=== PATIENT | male | born 1955 | race Caucasian/White ===

== ENCOUNTER 2017-03-24 06:19 | Day surgery (SDC) | payer OTHER ==
[~2017-03-24] VITALS: Ht 167.6 cm; Wt 69.6 kg
[2017-03-24] MEDS ORDERED: IOHEXOL 350 MG/ML 50 ML BTL (for Cath Lab) OTHER ONE (06:20)
[2017-03-24] MEDS ORDERED: NS 1000P @30 MLS/HR (KVO) IV SCH (07:00)
[2017-03-24 07:08] VITALS: BP 164/98; PULSE 79; RESP 17; TEMP 98.1; O2SAT 100
[2017-03-24] MEDS ORDERED: CLAR10CA3 PO (07:36)
[2017-03-24] MEDS ORDERED: ASPI325T PO (07:36)
[2017-03-24] MEDS ORDERED: ERGO1CAP30 PO (07:36)
[2017-03-24] MEDS ORDERED: POTA595T PO (07:36)
[2017-03-24] MEDS ORDERED: ISOS30TA3 PO (07:36)
[2017-03-24] MEDS ORDERED: LISI10TA3 PO (07:36)
[2017-03-24] MEDS ORDERED: NITR0.4S SL (07:36)
[2017-03-24] MEDS ORDERED: MEDI220T PO (07:36)
[2017-03-24] MEDS ORDERED: MAGN400T2 PO (07:36)
[2017-03-24] MEDS ORDERED: ATOR40TA16 PO (07:36)
[2017-03-24] MEDS ORDERED: FLUT50SP EACH NARE (07:36)
[2017-03-24] MEDS ORDERED: CARV6.252 PO (07:36)
[2017-03-24] MEDS ORDERED: KETO2CRE TOPICAL (07:36)
[2017-03-24] MEDS ORDERED: CLOP75TA PO (07:36)
[2017-03-24] MEDS ORDERED: HEPARIN-NS/PF INJ 1,000 ML ONE (08:36)
[2017-03-24] MEDS ORDERED: SODIUM CHLORID 0.9% 500 ML INJ 500 ML ONE (08:37)
[2017-03-24] MEDS ORDERED: NITROGLYCERIN INJ 5 ML ONE (09:01)
[2017-03-24] MEDS ORDERED: HEPARIN SODIUM - IV 10,000 UNITS/10 ML VIAL ONE (09:01)
[2017-03-24] MEDS ORDERED: MIDAZOLAM HCL 2 MG/2 ML VIAL ONE ×2 (09:01→09:29)
--- NOTE | 2017-03-24 09:59 | CATHPROC ---
[employer] HIS Report Study Information Study Number Admission Scheduled Start Study Start [id number] Mar 24 2017 6:19AM 03/24/2017 Mar 24 2017 8:44AM [facility] Cardiac Catheterization Admit Source Facility Department Other [facility] Physician and Clinical Staff Initial Lee Vargas Coagulating Drying Supervisor Merlyn Hardin,CJ Other cathlab, cathlab Recorder Analy Guerrero,SHARE DAIRY FARMER TECH2 Scrub Fran Jasso,packaging operator Performed Procedure Location (Site) Vessel Name Coronary Angiograms LCA Left Coronary Coronary Angiograms RCA Right Coronary L Heart Cath Wire insertion Radial (right) Radial Art. Equipment Time Corporate Learning Consultant Description Size Mfg Part Number Used/Scraped TRANSDUCER, TRUWAVE [id number] 09:01 ARIZA YEE * Used W/STOCKCOCK *[id number] *[id number] *[id number] 09:01 [employer] PACK, CCL CUSTOM * Used *[id number] 09:01 [employer] SUPPORT, ARTERIAL ADULT [id number] *[id number] Used [id number] 09:01 [employer] PACER PEN, SKIN DUAL W/ RULER * Used *[id number] BAND, RADIAL COMPRESSION TR [id number] 09:45 [employer] MEDICAL 24CM Used SHORT 24 *[id number] SHEATH, FR6 RADIAL PRELUDE 09:01 [employer] FR 6 [id number] Used EASE 11CM [id number] 09:01 [employer] WIRE, EXCHANGE 260CM 3MMJ 260CM Used *[id number] 09:01 [employer] OMNIPAQUE, 350 MG, 150ML 150ML [id number] Used [id number] 09:01 [facility] BLANKET,WARM AIR CCL * Used *[id number] History: Current Medications Medication Dosage/Unit Route Frequency Last Date/Time Taken ASA CARVEDILOL LISINOPRIL History: Allergies Allergy Reaction No Known Allergies History: Risk Factors Family History of Hypertension Dyslipidemia Previous NE Previous Heart Failure Premature CAD Yes Yes Yes No No Prior Valve Prior PCI Prior CABG Surgery No No No Cerebrovascular Peripheral Artery Chronic Lung On Dialysis Diabetes Disease Disease Disease No Yes No No No History: Stress Tests Stress or Imaging Studies Performed Yes Standard Exercise Stress Test No Stress Echo No Stress Test SPECT No Stress Test CMR Stress Test CMR Result Stress Test CMR Ischemia Risk/Extent Yes Positive High Cardiac CTA Coronary Calcium Score No No History: Other Current Smoker Method Quit Packs a Day Years Used Pack Years No Cigarettes 20 Years Ago 1 30 30 Labs Hgb (g/dl) Hct (%) RBC (MIL/MM3) WBC (l/cumm) Platelets (thousands) 11.60-17.00 35.00-51.00 4.00-5.90 4.00-11.00 150.00-450.00 14.2 42.3 4.7 6.9 284 Glucose (mg/dl) BUN (mg/dl) Creatinine (mg/dl) BUN:Creatinine (1:x) 74.00-106.00 7.00-18.00 0.50-1.30 10.00-20.00 84 13 0.8 16.3 Na (meq/l) K (meq/l) Cl (meq/l) CO2 (mmol/L) Ca (mg/dl) 136.00-145.00 3.50-5.10 98.00-107.00 21.00-32.00 8.50-10.10 140 4.7 101 28 9.8 PT (sec) INR (PTT:PT) 9.80-11.60 0.90-1.10 10.4 1 Medication Medication Total Dose (Bolus/Oral) Medication Total Dosage/Unit 1% XYLOCAINE 10 mL FENTANYL 100 mcg HEPARIN 5000 units NITROGLYCERIN S/L 0.4 mg NTG (IC) 300 mcg VERSED 4 mg Medications (Bolus/Oral) Medication Time Given Dosage/Unit Administered By Reason NITROGLYCERIN S/L 03/24/2017 9:05:18 AM 0.4 mg Merlyn Hardin 0.4 mg NITROGLYCERIN S/L given in lab by Merlyn Hardin, CJ via Sublingual. Ordered by Carlito Cadena VERSED 03/24/2017 9:25:43 AM 2 mg Merlyn Hardin 2 mg VERSED given in lab by Merlyn Hardin, RN in Left Antecubital via Peripheral IV. Ordered by Lee Mcnamara. FENTANYL 03/24/2017 9:26:11 AM 50 mcg Lashawn, Merlyn 50 mcg FENTANYL given in lab by Merlyn Hardin, RN in Right Antecubital via Peripheral IV. Ordered b Lee Mcnair. VERSED 03/24/2017 9:32:13 AM 2 mg Eneida Hardinara 2 mg VERSED given in lab by Merlyn Hardin, CJ in Left Antecubital via Peripheral IV. Ordered by Lee Mcnamara. 1% XYLOCAINE 03/24/2017 9:32:15 AM 10 mL Lee Cadena 10 mL 1% XYLOCAINE given in lab by Lee Cadena in Right Radial via Subcutaneous. Ordered by Lee Cadena. FENTANYL 03/24/2017 9:33:24 AM 50 mcg Merlyn Hardin 50 mcg FENTANYL given in lab by Merlyn Hardin, CJ in Right Antecubital via Peripheral IV. Ordered b Lee Mcnair. NTG (IC) 03/24/2017 9:33:32 AM 300 mcg Lee Cadena 300 mcg NTG (IC) given in lab by Lee Cadena in Right Radial via Intra-arterial. Ordered by Lee Cadena. HEPARIN 03/24/2017 9:33:42 AM 5000 units Merlyn Hardin 5000 units HEPARIN given in lab by Merlyn Hardin, CJ in Left Antecubital via Peripheral IV. Ordered by Lee Cadena. Medication (Drip) Medication Time Given Dosage/Unit Concentration/Unit Diluent (ml) Solution IV Solutions 03/24/2017 8:53:04 AM 0 mL (IV) 500 NaCl .9 IV Solutions given in lab by Merlyn Hardin RN in Left Antecubital via Peripheral IV. Pump/Drip Denny w = 20 ml/hr using NaCl .9. Ordered by Lee Cadena. Initial Case Assessment Cardiovascular HR NIBP Chest Pain 93 172/121 6 Edema Present Skin color Skin None Normal Warm Dry Circulatory - Right Pulses Dorsalis Pedis Femoral Radial 2 3 3 Scale (0,1,2,3,4,d) Scale (0,1,2,3,4,d) Neurological State Oriented to time-place- Alert Moves all extremities person Respiration - General Respiration Rate SpO2 (%) (B/min) 15 100 Final Case Assessment Cardiovascular HR NIBP Chest Pain 93 176/114 6 Edema Present Skin color Skin None Normal Warm Dry Circulatory - Right Pulses Dorsalis Pedis Femoral Radial 2 3 3 Scale (0,1,2,3,4,d) Scale (0,1,2,3,4,d) Neurological State Oriented to time-place- Alert Moves all extremities person Respiration - General Respiration Rate SpO2 (%) (B/min) 11 98 Chronological Log Time Study Chronological Log 8:45:45 Patient arrived via Bed. 8:52:50 Patient Name, D.O.B, / Armband Verified By R.N. 8:52:51 Consent signed by the physician and the patient and verified by the [employer] staff. 8:52:52 Pre-op and post- op instructions given; patient acknowledges understanding of instructions. 8:52:54 Patient has been NPO for More than 6Hrs. 8:52:55 NO Skin Breakdown- 8:52:57 Patient Warmer Placed on the Table. 8:52:58 Aquiles Prominences Protected 8:53:02 A # 20 IV was noted in the Antecubital (left). Grade = 0 IV Solutions given in lab by Merlyn Hardin RN in Left Antecubital via Peripheral IV. Pump/Dri p Flow = 20 ml/hr using 8:53:04 NaCl .9. Ordered by Lee Cadena. 8:53:04 History and physical on the chart or being dictated. Vitals capture started with the following parameters, Patient=Adult, Interval=5 min, Initial Pre ftvhj=718 mmHg, 8:53:17 Deflation Rate=5 mmHg, Cuff placed on Left Ankle 8:53:46 Reference ECG taken 8:54:32 HR=93 bpm, FATU=442/121 mmhg, HnO4=718.0 %, Resp=15 B/min, Pain=6, Nicki=10, Garcia=2 Assessment: Initial Case, HR=93 BPM, MDOD=046/121 mmhg, Chest Pain=6, Edema=None, Color=Normal, Skin = Warm, Dry 8:54:45 Right Pulses: Jose Ped=2, Femoral=3, Radial=3 Neurological: State=Alert, Ox3, MICHAELS Respiration: Resp=15 B/min, KzQ9=483 % 8:58:56 HR=92 bpm, NIIN=517/108 mmhg, SpO2=99.0 %, Resp=13 B/min, Pain=6, Nicki=10, Garcia=2 9:00:57 Right groin and right wrist prepped with 2% chlorhexidine, and with a 3 min. waiting time. 9:04:01 HR=98 bpm, HMLQ=661/118 mmhg, GgI4=797.0 %, Resp=15 B/min, Pain=6, Nicki=10, Garcia=2 9:05:18 0.4 mg NITROGLYCERIN S/L given in lab by Merlyn Hardin, CJ via Sublingual. Ordered by Lee Tellez. 9:09:03 HR=95 bpm, TNEI=870/117 mmhg, RqM2=273.0 %, Resp=14 B/min, Pain=6 9:11:50 Pressure channel 1 zeroed. 9:14:06 HR=96 bpm, OEHJ=283/113 mmhg, MoV4=806.0 %, Resp=14 B/min, Pain=6, Nicki=10, Garcai=2 9:19:05 HR=88 bpm, AONT=396/116 mmhg, SpO2=99.0 %, Resp=14 B/min, Pain=6, Nicki=10, Garcia=2 9:24:06 HR=89 bpm, GFLP=691/110 mmhg, GuQ5=850.0 %, Resp=14 B/min, Pain=6, Nicki=10, Garcia=2 9:25:43 2 mg VERSED given in lab by Merlyn Hardin, RN in Left Antecubital via Peripheral IV. Order ed by Lee Cadena. 50 mcg FENTANYL given in lab by Merlyn Hardin, CJ in Right Antecubital via Peripheral IV. Orde red by Surinder, 9:26:11 Lee. Time Out. Correct patient, correct procedure,correct physician, power injector not loaded with c ontrast with surgical 9:28:10 team present. Time Out Concurred by , individual staff in procedure 9:28:13 Case Start 9:29:03 HR=91 bpm, VZJK=926/108 mmhg, SpO2=98.0 %, Resp=15 B/min, Pain=6, Nicki=10, Garcia=2 9:32:13 2 mg VERSED given in lab by Merlyn Hardin, CJ in Left Antecubital via Peripheral IV. Order ed by Lee Cadena. 9:32:15 10 mL 1% XYLOCAINE given in lab by Lee Cadena in Right Radial via Subcutaneous. Ordered by Lee Cadena. 9:32:19 Access site was Radial Artery. A SHEATH, FR6 RADIAL PRELUDE EASE 11CM FR 6 was advanced into the Radial (right) using the Modif ied Seldinger 9:32:29 technique. 9:32:32 In the Radial (right) the SHEATH, FR6 RADIAL PRELUDE EASE 11CM FR [address] by Lee Cadena. 50 mcg FENTANYL given in lab by Merlyn Hardin, RN in Right Antecubital via Peripheral IV. Orde red by Surinder, 9:33:24 Lee. 9:33:32 300 mcg NTG (IC) given in lab by Lee Cadena in Right Radial via Intra-arterial. Ordered by Lee Cadena. 5000 units HEPARIN given in lab by Merlyn Hardin, CJ in Left Antecubital via Peripheral IV. Or dered by Surinder, 9:33:42 Lee. 9:34:02 HR=86 bpm, YJZA=230/88 mmhg, SpO2=97.0 %, Resp=14 B/min, Pain=6, Nicki=10, Garcia=2 A JR 5.0 INFINITI CATHETER FR 6 was advanced over a wire. OMNIPAQUE, 350 MG, 150ML 150ML was u sed for 9:34:41 injections. Recorded Pressure: LV, HR=87, Condition=Condition 1 9:35:34 (Left Ventricle) LV 128/2/3 Recorded Pressure: LV, Ao, HR=86, Condition=Condition 1 9:35:56 (Left Ventricle) LV 132/2/4, (Aorta) Ao 127/78/100 9:36:44 The RCA was injected and visualized at various angles. OMNIPAQUE, 350 MG, 150ML 150ML use d. After removing the current catheter a JL 3.5 INFINITI CATHETER FR 6 was advanced over a WIRE, EXCHANGE 260CM 9:37:49 3MMJ 260CM. 9:38:59 HR=90 bpm, DNEA=508/84 mmhg, SpO2=96.0 %, Resp=11 B/min, Pain=6, Nicki=10, Garcia=2 Recorded Pressure: Ao, HR=91, Condition=Condition 1 9:39:19 (Aorta) Ao 137/82/107 9:40:00 The LCA was injected and visualized at various angles. OMNIPAQUE, 350 MG, 150ML 150ML use d. 9:43:51 A WIRE, EXCHANGE 260CM 3MMJ 260CM was inserted via Radial (right). 9:44:35 EL=100 bpm, RIOM=759/106 mmhg, SlJ8=652.0 %, Resp=13 B/min, Pain=6, Nicki=10, Garcia=2 9:44:42 Catheter was removed 9:44:47 Case End Radial Compression Device Used. 15 mLs of air placed in BAND, RADIAL COMPRESSION TR SHORT 24 2 4CM. Affected 9:48:37 hand 99 % O2 saturation. 9:49:05 HR=93 bpm, LMCB=094/120 mmhg, SpO2=98.0 %, Resp=11 B/min, Pain=6, Nicki=10, Garcia=2 Assessment: Final Case, HR=93 BPM, PWOW=526/114 mmhg, Chest Pain=6, Edema=None, Color=Normal, Skin = Warm, Dry 9:49:37 Right Pulses: Jose Ped=2, Femoral=3, Radial=3 Neurological: State=Alert, Ox3, MICHAELS Respiration: Resp=11 B/min, SpO2=98 % 9:57:23 Vitals capture stopped. 9:58:15 No case complications noted. 9:58:16 Cine recording checked. 9:58:20 Contrast Scanned 9:58:22 A Left Heart Cath was performed. 9:58:26 Patient moved to [facility] End Study - Contrast Media Used In Study Contrast Total Opened (mL) Total Used (mL) Total Wasted (mL) Omnipaque 50 50 0 End Study - Maximum Contrast Load Max Contrast Load (mL) 434.9 End Study - Radiation Exposure Fluoro Time (minutes) 1.8 End Study - Patient Disposition Complications Transferred To Telemetry Bed
[2017-03-24] MEDS ORDERED: oxyCODONE/ACETAMINOPHEN 5 MG/325 MG TAB PO PRN ×2 (10:00)
[2017-03-24] MEDS ORDERED: ONDANSETRON HCL 4 MG/2 ML VIAL IVP PRN (10:00)
[2017-03-24] MEDS ORDERED: BACITRACIN OINT 0.9 GM PKT TOP ONE (10:00)
[2017-03-24] MEDS ORDERED: MISC INFORMATION XX ONE (10:00)
--- NOTE | 2017-03-24 10:34 | MA ---
cc: JACOB LÓPEZ DATE 03/24/2017 PROCEDURE PERFORMED 1. Fluoroscopy with interpretation 2. Coronary angiography 3. Left heart catheterization METHOD The risks, benefits and alternatives discussed with the patient. The patient understood and consented to the procedure. PROCEDURE The patient brought into the catheterization lab, placed on the catheterization table. The right wrist was prepped and draped in a sterile fashion. The right wrist was anesthetized with 2% lidocaine. The right radial artery was cannulated and a 6-[place]izen [place] 7 cm sheath was placed without difficulty. LEFT HEART CATHETERIZATION Intraventricular hemodynamics measured at 150/12 mmHg. CORONARY ANGIOGRAPHY 1. The left main coronary angiographically normal. 2. The left anterior descending coronary has a 60% stenosis proximally. The remainder of the vessel has mild luminal irregularities, large caliber size. There is a very large diagonal branch with 90% proximal diffuse stenosis. 3. The left circumflex is occluded in the proximal segment. The obtuse marginal branch is small and not well visualized. There is a ramus intermedius branch which has moderate caliber size and fed by collaterals that is also 100% occluded proximally. 4. Right coronary is occluded proximally. It is a large caliber sized vessel, dominant. Mkbk-pa-fcmdy collaterals are visualized and both the posterolateral and posterior descending arteries are well visualized. CONCLUSION 1. Koi severe three-vessel coronary artery disease with chronically occluded ramus intermedius branch, left circumflex, and right coronary arteries. 2. Normal left sided filling pressure. PLAN Multivessel CAD. We will consult cardiothoracic surgery for consideration of bypass surgery MD GUSTAVO Peña/SHWETA /10:04 AM /10:22 AM KIM
--- NOTE | 2017-03-24 14:55 | PD.CAR.PN ---
CVT Progress Note Subjective/Hospital Course: sts data discussed with pt RISK SCORES About the STS Risk Calculator Procedure: CAB Only Risk of Mortality: 0.583% Morbidity or Mortality: 7.86% Long Length of Stay: 2.612% Short Length of Stay: 63.257% Permanent Stroke: 1.152% Prolonged Ventilation: 5.008% DSW Infection: 0.183% Renal Failure: 0.802% Reoperation: 3.735% Objective: Vital Signs Date Time Temp Pulse Resp B/P (MAP) Pulse Ox O2 Delivery O2 Flow Rate FiO2 03/24/17 10:14 98 Room Air 03/24/17 07:08 98.1 79 17 164/98 (120) 100 Elodia Lauren Mar 24, 2017 14:55
--- NOTE | 2017-03-24 15:34 | RADRPT ---
EXAM DATE/TIME: 03/24/2017 15:02 [facility] COMPARISON: No previous studies available for comparison. INDICATIONS : Evaluate for pneumothorax, pneumonia and communicable diseases. Pre-op CABG. MEDICAL HISTORY : Hypertension. SURGICAL HISTORY : None. ENCOUNTER: Initial ACUITY: 1 day PAIN SCORE: 0/10 LOCATION: Bilateral chest FINDINGS: A single view of the chest demonstrates the lungs to be symmetrically aerated without evidence of mas s, infiltrate or effusion. The cardiomediastinal contours are unremarkable. Osseous structures are intact. CONCLUSION: 1. No acute cardiopulmonary findings. Hussain Bean MD on March 24, 2017 at 15:33 Board Certified Radiologist. This report was verified electronically.
--- NOTE | 2017-03-24 15:42 | MB ---
cc: LADONNA HEART M.D. DATE OF CONSULTATION: 03/24/2017 DATE OF : 1955 REASON FOR CONSULTATION: 62-year-old male patient of Dr. Vega, Dr. Shane wallace who apparently had a ischemic stroke on November 2016 with residual left hand and arm weakness, also some very mild minimal speech the defect was followed up by Dr. Wallace in his office and underwent a exercise nuclear stress test which showed a moderately reversible defect in the basal and mild mid inferior lateral wall, the ejection fraction of 60%. He was brought in for an outpatient cardiac catheterization which revealed an ejection fraction of 60%, 50% proximal left anterior descending, mid distal left anterior descending 0% diagonal was 90%. The circ 100%. The obtuse marginal was 100%. The right coronary artery 100%. We were consulted to evaluate for coronary artery bypass grafting. The patient's past medical history also includes hypertension, hyperlipidemia, recent ischemic stroke where he was in rehab at [facility] where he still has some mild defect in that left arm and left hand weakness. He has had some recent dental surgery 2 weeks ago had one of his left lower molars removed. He was placed on antibiotics prior to that he has been off the antibiotics for quite some time he has no known allergies MEDICATIONS Home medications include 1. Flonase, 2. Ketoconazole cream 3. Claritin 4. mag oxide. 5. Naprosyn. 6. Potassium gluconate bxhq-lrn-eyzlpnl. 7. Coreg 6.25 b.i.d. 8. Imdur 30 p.o. daily. 9. Nitro p.r.n. 10. Atorvastatin 40 p.o. q.h.s. 11. Lisinopril 10 p.o. daily which she will need to hold 3 days prior to surgery. 12. Vitamin E oil. 13. Aspirin 325 daily. 14. Plavix 75 daily. Last dose was 03/24/2017. The patient is also to hold 5 days prior to surgery. FAMILY HISTORY: Mother at age 72 unknown causes per the patient. Father from complications of a brain tumor. SOCIAL HISTORY The patient single, no children. Currently working in the [employer] business. He quit smoking 20 years ago. Smoked 16-17 years, mainly on the weekend sporadically. No alcohol. He lives alone. He does have a healthcare surrogate Carolee who works in our [employer] department and a brother 10 Paul which is also healthcare surrogate. The patient currently takes care of all his necessities at home. He does not drive however. REVIEW OF SYSTEMS IN GENERAL: No night sweats, fever, heat and cold intolerance. SKIN: No psoriasis, itching or hives. HEAD, EYES, EARS, NOSE, AND THROAT: No blurred vision, hearing loss. RESPIRATORY: No cough, shortness of breath. CARDIOVASCULAR SYSTEM: As above in HPI. He has had some fatigue off and on since November occasionally has some indigestion and a burning type sensation in his chest on occasion. GASTROINTESTINAL: No diarrhea, vomiting. GENITOURINARY: No burning frequency, urgency CENTRAL NERVOUS SYSTEM: Positive for history of cerebrovascular accident. ENDOCRINOLOGY: No history of hypothyroidism and diabetes. PHYSICAL EXAMINATION: VITAL SIGNS: On exam blood pressure 160/90, heart rate of 80, afebrile. The patient's O2 sat 98 on room air. IN GENERAL: Patient is awake, alert in no acute distress. HEAD, EYES, EARS, NOSE, AND THROAT: Head is normocephalic, atraumatic. Pupils equal and reactive. Oral mucosa pink, moist. He has some very mild left-sided facial droop. No Pitosis. He has a fairly poor dentition however, there is no loose teeth at present. HEART: Heart sounds S1-S2 regular rate and rhythm. No audible rubs, murmurs, gallops. LUNGS: Clear to auscultation. No wheezes, rales or rhonchi. ABDOMEN: The abdomen is soft, nontender. No masses or organomegaly. EXTREMITIES: No cyanosis, clubbing or edema. 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 LABORATORY FINDINGS: Recent lab work shows sodium 140, potassium 4.7, BUN 13, creatinine 0.83, INR 1.0, hemoglobin 14, hematocrit of 42, white cell count 6.9, platelet count of 284. EKG shows what was sinus rhythm with a first-degree AV block could no otherwise unremarkable. IMPRESSION: This is a very pleasant 62-year-old male status post heart catheterization with four-vessel disease, coronary films will be evaluated by Dr. Anjelica Heart, procedures, alternatives and risks will be discussed with the patient. STS data will be documented in the electronic record and also discussed with the patient. PLAN: The plan will be for surgery next week will hold his Plavix 5 days prior to surgery hold his lisinopril 3 days prior to surgery. Further lab work and workup pending at this time. Dictated by KALIA Graham Anjelica Monet /2:27 PM /3:39 PM
--- NOTE | 2017-03-24 15:53 | RADRPT ---
EXAM DATE/TIME: 03/24/2017 14:49 [facility] COMPARISON: No previous studies available for comparison. INDICATIONS : Pre-op cardiac surgery. MEDICAL HISTORY : Cardiomyopathy. Hyperlipidemia. Hypertension. SURGICAL HISTORY : Cardiac cath. ENCOUNTER: Initial ACUITY: 1 day PAIN SCORE: 0/10 LOCATION: Bilateral legs. TECHNIQUE: Venous ultrasound of the left and right leg was performed from the inguinal ligament to the proximal calf. Real-time, color Doppler and spectral tracing, compression and augmentation techniques were us ed. FINDINGS: RIGHT LEG: There is normal compressibility of the deep venous system from the inguinal region to the proximal ca lf. No echogenic clot is seen in the lumen of the common femoral, femoral, popliteal, and posterior tibial veins. There is a normal response of the venous system to proximal and distal augmentation an d respiration. LEFT LEG: There is normal compressibility of the deep venous system from the inguinal region to the proximal ca lf. No echogenic clot is seen in the lumen of the common femoral, femoral, popliteal, and posterior tibial veins. There is a normal response of the venous system to proximal and distal augmentation an d respiration. CONCLUSION: 1. No DVT identified. Hussain Bean MD on March 24, 2017 at 15:51 Board Certified Radiologist. This report was verified electronically.
--- NOTE | 2017-03-24 16:00 | RADRPT ---
EXAM DATE/TIME: 03/24/2017 14:58 [facility] COMPARISON: US LEG BILATERAL VENOUS DOPPLER, March 24, 2017, 14:49. INDICATIONS : Pre-op cardiac surgery. MEDICAL HISTORY : Cardiomyopathy. Hyperlipidemia. Hypertension. SURGICAL HISTORY : Cardiac cath. ENCOUNTER: Initial ACUITY: 1 day PAIN SCORE: 0/10 LOCATION: Bilateral legs. GREATER SAPHENOUS VEIN THIGH: PROXIMAL: Right 6 mm Left 3 mm MID: Right 3 mm Left 3 mm DISTAL: Right 3 mm Left 3 mm CALF: PROXIMAL: Right 2 mm Left 2 mm MID: Right 2 mm Left 1 mm DISTAL: Right 2 mm Left 2 mm FINDINGS: The venous system of the lower extremities are patent by color Doppler imaging. Measurements of the leg veins (in mm) are listed above. CONCLUSION: 1. Vein mapping as above. Hussain Bean MD on March 24, 2017 at 15:58 Board Certified Radiologist. This report was verified electronically.
--- NOTE | 2017-03-24 16:15 | RADRPT ---
EXAM DATE/TIME: 03/24/2017 15:14 [facility] COMPARISON: No previous studies available for comparison. INDICATIONS : Pre-op cardiac surgery. MEDICAL HISTORY : Hypertension. Cardiomyopathy. Hyperlipidemia. SURGICAL HISTORY : Cardiac cath. ENCOUNTER: Initial ACUITY: 1 day PAIN SCORE: 0/10 LOCATION: Bilateral neck PEAK SYSTOLIC VELOCITIES (cm/sec): ICA/CCA RATIO: Right: N/A Left: 3.8 ICA: Right: OCCL. Left: 264 CCA: Right: 58 Left: 70 ECA: Right: 165 Left: 115 VERTEBRAL: Right: 65 antegrade Left: 42 antegrade Elevated flow velocities and ICA/CCA ratios have been found to correlate with increased degrees of vessel stenosis, calculated as percentage of diameter relative to a normal segment of distal ICA/CCA FINDINGS: RIGHT CAROTID: Right internal carotid artery is totally occluded LEFT CAROTID: High-grade proximal left ICA stenosis suspected on the basis of significant velocity acceleration in the proximal ICA. VERTEBRAL ARTERIES: Antegrade flow is seen in both vertebral arteries. MISCELLANEOUS: None. CONCLUSION: Occluded right ICA. High-grade left ICA stenosis suspected. Recommend further evaluation with CTA exa mination of the arch and carotids Major Brooks MD on March 24, 2017 at 16:11 Board Certified Radiologist. This report was verified electronically.
[2017-03-24 16:34] LABS: AUTOMATED NEUTROPHIL # 3.4 TH/MM3 (1.8-7.7); BASOPHIL % 0.7 % (0.0-2.0); EOSINOPHIL # 0.1 TH/MM3 (0-0.4); EOSINOPHIL % 2.4 % (0.0-4.0); HEMATOCRIT 37.6 % (39.0-51.0); HEMO FLAGS DIFF FINAL; LYMPH % 30.6 % (9.0-44.0); LYMPHOCYTE # 1.9 TH/MM3 (1.0-4.8); MEAN CELL VOLUME 89.3 FL (80.0-100.0); MEAN CORPUSCULAR HEMOGLOBIN 29.5 PG (27.0-34.0); MONO % 10.2 % (0.0-8.0); NEUT % 56.1 % (16.0-70.0); PLATELET COUNT 235 TH/MM3 (150-450); RED BLOOD COUNT 4.21 MIL/MM3 (4.50-5.90); RED CELL DISTRIBUTION WIDTH 13.4 % (11.6-17.2); WHITE BLOOD COUNT 6.1 TH/MM3 (4.0-11.0)
[2017-03-24 16:35] LABS: BLOOD, URINE NEG (NEG); GLUCOSE,URINE NEG (NEG); KETONE, URINE NEG (NEG); NITRITE,URINE NEG (NEG); PH, URINE 6.5 (5.0-8.5); URINE COLOR LIGHT-YELLOW (YELLW/STRAW)
[2017-03-24 16:36] LABS: COMMENT (UR) CULT NOT INDICATED; CULTURE IF INDICATED CULT NOT INDICATED
[2017-03-24 17:10] LABS: ALT (GPT) 33 U/L (12-78); ANION GAP 6 MEQ/L (5-15); AST (GOT) 14 U/L (15-37); BICARBONATE 26.7 MEQ/L (21.0-32.0); BLOOD UREA NITROGEN 11 MG/DL (7-18); CHLORIDE 109 MEQ/L (98-107); GLOMERULAR FILTRATION RATE 89 ML/MIN (>89); SODIUM (NA) 142 MEQ/L (136-145)
[2017-03-24 17:11] LABS: ALKALINE PHOSPHATASE 73 U/L (45-117); TOTAL BILIRUBIN ADULT 0.2 MG/DL (0.2-1.0)
[2017-03-24 18:09] LABS: HEMOGLOBIN A1a 0.9 %; HEMOGLOBIN A1b 1.6 %; HEMOGLOBIN Ao 85.6 %; HEMOGLOBIN P3 3.7 %
--- NOTE | 2017-03-25 15:46 | EKG ---
Date Performed: 03/24/2017 Time Performed: 07:13:22 PTAGE: 62 years EKG: Sinus rhythm with 1st degree A-V block. Abnormal ECG NO PREVIOUS TRACING DOCTOR: Francisca Hodge Interpretating Date/Time 03/25/2017 15:44:43
--- NOTE | 2017-03-26 08:49 | RSPPFT ---
DATE OF PROCEDURE: 03/24/17 COMMENTS: VOLUMES DYNAMIC: FVC and FEV1 normal. FLOWS: FEV1% and FEF 25-75 normal. IMPRESSION: This is a normal respiratory.
== END 2017-03-24 17:00 | disposition home or self-care (01) ==
LOC: HDIC 06:19 → HCAT 06:19
PROVIDERS: ATTEND Internal Medicine
DX: I25.10 Atherosclerotic heart disease of native coronary artery without angina pectoris (principal); I25.82 Chronic total occlusion of coronary artery; I44.0 Atrioventricular block, first degree; I65.21 Occlusion and stenosis of right carotid artery; I10 Essential (primary) hypertension; E78.5 Hyperlipidemia, unspecified; I42.9 Cardiomyopathy, unspecified; Z86.73 Personal history of transient ischemic attack (TIA), and cerebral infarction without residual deficits; Z87.891 Personal history of nicotine dependence; Z79.01 Long term (current) use of anticoagulants; Z79.82 Long term (current) use of aspirin; Z79.899 Other long term (current) drug therapy
CPT/HCPCS: 71010; 80053; 81001; 83036; 85025; 85610; 86850; 86900; 86901; 87641; 93005; 93458; 93880; 93970; 93998; 94010; C1769; C1893; J1644; J2250; J3010; J7040; 93454; Q9967

== ENCOUNTER 2017-04-02 05:31 | Inpatient (IN) | payer OTHER ==
[~2017-04-02] VITALS: Ht 169.2 cm; Wt 70.0 kg
[2017-04-02] VITALS (11 sets, daily range): BP systolic 107–136; BP diastolic 61–82; PULSE 66–85; RESP 12–16; TEMP 97.5–98.6; O2SAT 94–99
[~2017-04-02 05:31] MED LIST: ASPI325T PO; ATOR40TA16 PO; CARV6.252 PO; CLAR10CA3 PO; CLOP75TA PO; ERGO1CAP30 PO; FLUT50SP EACH NARE; ISOS30TA3 PO; KETO2CRE TOPICAL; LISI10TA3 PO; MAGN400T2 PO; MEDI220T PO; NITR0.4S SL; POTA595T PO
[2017-04-02] MEDS ORDERED: CHLORHEXIDINE GLUCONATE 4% SOLN 120 ML BTL TOPICAL SCH (06:00)
[2017-04-02] MEDS ORDERED: METOPROLOL TARTRATE 25 MG TAB PO SCH (06:00)
[2017-04-02] MEDS ORDERED: PAPAVERINE 60 MG-NITROGLYCERIN 100 MCG-DILTIAZEM 100 MG in NS 100 ML IRRIGATION SCH ×4 (06:00)
[2017-04-02] MEDS ORDERED: ceFAZolin 2 GM PREMIX 50 ML IV SCH (06:00)
[2017-04-02] MEDS ORDERED: INSULIN REGULAR 100 UNITS in NS 100 ML IV SCH (06:00)
[2017-04-02] MEDS ORDERED: SODIUM CHLORIDE 0.9% FLUSH 10 ML FLUSH IV FLUSH PRN ×3 (06:00→11:45)
[2017-04-02] MEDS ORDERED: INSULIN HUMAN REGULAR 1,000 UNITS/10 ML VIAL SQ PRN (06:15)
[2017-04-02] MEDS ORDERED: LACTATED RINGER'S 1000 ML IV PRN (06:15)
[2017-04-02] MEDS ORDERED: CHLORHEXIDINE GLUCONATE 2 % 1 PACK (2 CLOTHS) TOPICAL PRN (06:15)
[2017-04-02] MEDS ORDERED: POVIDONE IODINE 5% (ANTISEPSIS KIT) 4 APPLICATIONS EACH NARE PRN (06:15)
[2017-04-02] MEDS ORDERED: SODIUM CHLORID 0.9% 500 ML IV PRN (06:15)
[2017-04-02] MEDS ORDERED: METOPROLOL TARTRATE 25 MG TAB PO PRN (06:15)
[2017-04-02] MEDS ORDERED: HEPARIN SODIUM - SQ 10,000 UNITS/ML VIAL ONE (06:18)
[2017-04-02] MEDS ORDERED: ceFAZolin 2 GM PREMIX 50 ML ONE (06:18)
[2017-04-02] MEDS ORDERED: VANCOMYCIN HCL 1000 MG VIAL ONE ×2 (06:18→08:52)
[2017-04-02] MEDS ORDERED: BUPIVACAINE LIPOSO PF 1.3% INJ 20 ML, DEXAMETHASONE INJ 4 MG, MORPHINE INJ 8 MG in SODI... IRRIGATION SCH (07:00)
[2017-04-02] MEDS ORDERED: POTASSIUM CHLORIDE 40 MEQ/20 ML VIAL ONE (07:09)
[2017-04-02] MEDS: CEFAZOLIN 500 MG in NS IRR BTL 500 ML IRRIGATION SCH ×2 (09:13→09:25)
[2017-04-02] MEDS ORDERED: ceFAZolin INJ 1,000 MG VIAL ONE (10:50)
[2017-04-02] MEDS ORDERED: LACTATED RINGER'S 1000 ML INJ 500 ML IV PRN (11:41)
[2017-04-02] MEDS ORDERED: DOBUTamine PREMIX DRIP 250 ML IV SCH (11:41)
[2017-04-02] MEDS ORDERED: SODIUM BICARBONATE 8.4% SOLN 50 MEQ/50 ML VIAL IV PUSH PRN ×2 (11:45)
[2017-04-02] MEDS ORDERED: PHENYLEPHRINE INJ 40 MG in DEXTROSE 5% IN WATE 500 ML INJ 496 ML IV PRN ×2 (11:45)
[2017-04-02] MEDS ORDERED: oxyCODONE/ACETAMINOPHEN 5 MG/325 MG TAB PO PRN (11:45)
[2017-04-02] MEDS ORDERED: DEXMEDETOMIDINE INJ 200 MCG in SODIUM CHLORIDE 0.9% INJ 50 ML IV PRN (11:45)
[2017-04-02] MEDS ORDERED: POTASSIUM CHLOR 20 MEQ PREMIX 100 ML IV PRN ×3 (11:45)
[2017-04-02] MEDS ORDERED: ALBUMIN HUMAN 5% 12.5 GM/250 ML BOTTLE IV PRN (11:45)
[2017-04-02] MEDS ORDERED: Post-op Orders (for Pharmacy) MISC OTHER ONE (11:45)
[2017-04-02] MEDS ORDERED: ACETAMINOPHEN 650 MG SUPP RECTAL PRN (11:45)
[2017-04-02] MEDS ORDERED: MORPHINE SULFATE 4 MG/ML INJ IV PUSH PRN (11:45)
[2017-04-02] MEDS ORDERED: DEXTROSE 50% IN WATER 50 ML VIAL(D50) IV PUSH PRN (11:45)
[2017-04-02] MEDS ORDERED: ACETAMINOPHEN 325 MG TAB PO PRN (11:45)
[2017-04-02] MEDS ORDERED: NITROGLYCERIN-D5W 50 MG/250 ML 250 ML IV PRN (11:45)
[2017-04-02] MEDS ORDERED: METOPROLOL TARTRATE 5 MG/5 ML VIAL IV PUSH PRN (11:45)
[2017-04-02] MEDS ORDERED: POTASSIUM CHLORIDE 20 MEQ CONTROLLED RELEASE TAB PO PRN ×2 (11:45)
[2017-04-02] MEDS ORDERED: CALCIUM CHLORIDE 10% 1 GRAM/10 ML VIAL IV PUSH PRN (11:45)
[2017-04-02] MEDS ORDERED: RESP: ALBUTEROL 2.5 MG/IPRATROPIUM 0.5 MG NEB (PRN) NEB (11:45)
[2017-04-02] MEDS ORDERED: DOPamine INJ PREMIX 500 ML IV PRN (11:45)
[2017-04-02] MEDS ORDERED: hydrALAZINE HCL 20 MG/ML VIAL IV PUSH PRN (11:45)
[2017-04-02] MEDS ORDERED: CALCIUM CHLORIDE INJ 1 GM in SODIUM CHLORIDE 0.9% INJ 100 ML IV PRN (11:45)
[2017-04-02] MEDS ORDERED: CLEVIDIPINE INJ 50 ML IV PRN (11:45)
[2017-04-02] MEDS ORDERED: MEPERIDINE HCL 25 MG/ML VIAL IV PUSH PRN (11:45)
[2017-04-02] MEDS ORDERED: RESP: RACEPINEPHRINE 2.25% 0.5 ML NEB NEB PRN (11:45)
[2017-04-02] MEDS ORDERED: MAGNESIUM SULFATE INJ 2 GM in SODIUM CHLORIDE 0.9% INJ 100 ML IV PRN ×4 (11:45)
[2017-04-02] MEDS ORDERED: INSULIN REGULAR (IV INFUSION) 100 UNITS in SODIUM CHLORIDE 0.9% INJ 99 ML IV PRN (11:45)
[2017-04-02] MEDS ORDERED: MAGNESIUM SULFATE 1000 MG/2 ML VIAL (PED) IV ONE (12:00)
[2017-04-02] MEDS ORDERED: fentaNYL CITRATE 1000 MCG/20 ML VIAL IV ONE (12:00)
[2017-04-02] MEDS ORDERED: NITROGLYCERIN 50 MG/10 ML VIAL IV ONE (12:00)
[2017-04-02] MEDS ORDERED: MIDAZOLAM HCL 5 MG/5 ML VIAL IV ONE (12:00)
[2017-04-02] MEDS ORDERED: PROTAMINE SULFATE 250 MG/25 ML VIAL IV ONE (12:00)
[2017-04-02] MEDS ORDERED: CALCIUM CHLORIDE 10% SOLN 1 GRAM/10 ML SYR IV ONE (12:00)
[2017-04-02] MEDS ORDERED: ePHEDrine/NS 25 MG/5 ML SYR IV ONE (12:00)
[2017-04-02] MEDS ORDERED: VECURONIUM BROMIDE 20 MG VIAL IV ONE (12:00)
[2017-04-02] MEDS ORDERED: PHENYLEPH/NS 1000 MCG/10 ML SYR IV ONE (12:00)
[2017-04-02] MEDS ORDERED: HEPARIN SODIUM - SQ 10,000 UNITS/ML VIAL IV FLUSH ONE (12:00)
[2017-04-02] MEDS ORDERED: ARTIFICIAL TEARS OPTH SOLN 15 ML BTL EACH EYE ONE (12:00)
--- NOTE | 2017-04-02 13:25 | RADRPT ---
EXAM DATE/TIME: 04/02/2017 12:56 [facility] COMPARISON: CHEST SINGLE AP, March 24, 2017, 15:02. INDICATIONS : Post op, CABG. MEDICAL HISTORY : Hypertension. Cardiomyopathy. Hyperlipidemia. SURGICAL HISTORY : Cardiac Cath ENCOUNTER: Initial ACUITY: 1 day PAIN SCORE: Non-responsive. LOCATION: Bilateral chest FINDINGS: A single AP supine view of the chest was obtained and demonstrates that the patient is status post me sonia sternotomy. The patient has been intubated with the endotracheal tube tip approximately 4 cm abo ve the alina. A right internal jugular central venous line has been placed with the tip projecting o angélica the superior vena cava. There is no pneumothorax. There is a mediastinal chest tube and left-side d chest tube with no pneumothorax. There is patchy opacity at the left lung base. The heart size is w ithin normal limits CONCLUSION: 1. Interval intubation and placement of right internal jugular central venous line with no pneumothor ax. 2. Mild streaky opacity at left lung base. Doc Paz MD on April 02, 2017 at 13:22 Board Certified Radiologist. This report was verified electronically.
--- NOTE | 2017-04-02 13:52 | PD.OP ---
cc: Anjelica Denton MD; Lee Cadena MD Operative Report Date of Surgery: Apr 02, 2017 Preoperative Diagnosis: Postoperative Diagnosis: Procedure: 1. Off-pump Coronary Artery Bypass Grafting x 4 with Left Internal Mammary Artery (GREWAL) to the Left Anterior Descending (LAD), reverse saphenous vein graft to the Diagonal (D1), sequential reverse saphenous vein graft to the Right Posterolateral Branch (RPLB) and to the Right Posterior Descending Artery (RPDA) 2. Left Leg Endoscopic Vein [place] 3. Intraoperative Vein Mapping 4. Multi-Level Intercostal Nerve Block. Surgeon: Anjelica Denton Final Inspector Truck Trailer(s): Brittni Mathew Operation and Findings: PREPROCEDURE DIAGNOSES 1. Severe Multi-Vessel Coronary Artery Disease. 2. Carotid Artery Stenosis 3. Mild Left Ventricular Dysfunction POSTPROCEDURE DIAGNOSES Same SURGICAL PROCEDURE 1. Off-pump Coronary Artery Bypass Grafting x 4 with Left Internal Mammary Artery (GREWAL) to the Left Anterior Descending (LAD), reverse saphenous vein graft to the Diagonal (D1), sequential reverse saphenous vein graft to the Right Posterolateral Branch (RPLB) and to the Right Posterior Descending Artery (RPDA) 2. Left Leg Endoscopic Vein [place] 3. Intraoperative Vein Mapping 4. Multi-Level Intercostal Nerve Block. SURGEON Anjelica Denton MD COBOL APPLICATION DEVELOPER BARBARA Reed ANESTHESIA General endotracheal CROSS TIE MAKER Garett Gary, NAHID Barksdale MD PREPARATION ChloraPrep. COUNTS Needle, sponge, and instrument counts were correct. DRAINS Two 32-[place] mediastinal tubes. COMPLICATIONS None. INDICATIONS FOR PROCEDURE The patient is a 62-year-old presenting with chest pain and severe multi- vessel coronary artery disease. He is being brought to the operating room for surgical revascularization therapy. PROCEDURE Patient was brought to the operating room and placed supine on the OR table. Following the induction of adequate general endotracheal anesthesia and placement of appropriate monitoring devices, intraoperative vein mapping was performed which revealed suitable-caliber conduit in both legs. The patient was then prepped and draped in standard sterile fashion. Next, 2500 units of intravenous heparin was given. The left greater saphenous vein was harvested endoscopically. This appeared to be a useable-caliber conduit. Simultaneously, a median sternotomy was performed and the left internal mammary artery dissected free off the posterior sternal table. The patient was systemically heparinized and anticoagulation monitored by serial ACT measurements. The internal mammary artery had good pulsatile flow in it and was a decent-caliber conduit. The pericardium was then divided in the midline, the cradle created and targets analyzed. At this point, all anastomoses were performed in a beating -heart fashion using the Maquet stabilizing system. The left internal mammary artery was anastomosed to the distal LAD (1.5 mm) in an end-to-side fashion using 7-0 Prolene. The next segment was anastomosed to the D1 (1.75 mm) in an end-to-side fashion using a running 7-0 Prolene. The final segment was anastomosed to the RPLB (1.75 mm) in a [id number] fashion and to the RPDA ( 1.75 mm) in an end-to-side fashion using 7-0 Prolene in a running fashion. The proximal anastomosis was then constructed to the ascending aorta in a running manner using 6-0 Prolene. All anastomotic sites were inspected and appeared to be hemostatic and patent. Protamine solution was given. Strict hemostasis was assured. The closure was undertaken. 2 chest tubes were placed. The pericardium was reapproximated in the midline. Bilateral multi-level intercostal nerve block was performed using Exparel solution. The sternum was approximated using sternal wires. The muscular and fascial layer were then closed in 3 layers. The endoscopic vein harvest site was closed in 2 layers. The patient tolerated the procedure well and was transferred to CVICU in stable condition. Anjelica Denton MD Apr 02, 2017 13:52
[2017-04-02] MEDS: ceFAZolin 2 GM PREMIX 50 ML IV SCH (15:44)
[2017-04-02] MEDS: KETOROLAC TROMETHAMINE 30 MG/ML (IVP) VIAL IV PUSH PRN (15:45)
[2017-04-02] MEDS: ACETAMINOPHEN 1000 MG/100 ML 100 ML IV SCH (20:39)
[2017-04-02] MEDS: ATORVASTATIN 40 MG TAB PO SCH (20:40)
[2017-04-02] MEDS: ONDANSETRON HCL 4 MG/2 ML VIAL IV PUSH PRN (20:40)
[2017-04-02] MEDS: CARVEDILOL 6.25 MG TAB PO SCH (20:41)
[2017-04-02] MEDS: SODIUM CHLORIDE 0.9% FLUSH 10 ML FLUSH IV FLUSH SCH (21:00)
[2017-04-02] MEDS: RESP: ALBUTEROL 2.5 MG/IPRATROPIUM 0.5 MG NEB (SCH) NEB (21:17)
[2017-04-03] VITALS (20 sets, daily range): BP systolic 115–156; BP diastolic 57–89; PULSE 76–121; RESP 16–18; TEMP 97.8–98.3; O2SAT 93–100
[2017-04-03] MEDS: ceFAZolin 2 GM PREMIX 50 ML IV SCH ×3 (01:14→16:11)
[2017-04-03] MEDS: ACETAMINOPHEN 1000 MG/100 ML 100 ML IV SCH ×2 (01:14→08:27)
[2017-04-03] MEDS: RESP: ALBUTEROL 2.5 MG/IPRATROPIUM 0.5 MG NEB (SCH) NEB ×5 (04:15→22:00)
[2017-04-03 05:13] LABS: HEMATOCRIT 33.4 % (39.0-51.0); MEAN CELL VOLUME 88.7 FL (80.0-100.0); MEAN CORPUSCULAR HEMOGLOBIN 29.9 PG (27.0-34.0); MEAN CORPUSCULAR HGB CONC 33.7 % (32.0-36.0); PLATELET COUNT 227 TH/MM3 (150-450); RED BLOOD COUNT 3.76 MIL/MM3 (4.50-5.90); RED CELL DISTRIBUTION WIDTH 13.3 % (11.6-17.2); REVIEW FLAG FINAL; WHITE BLOOD COUNT 15.7 TH/MM3 (4.0-11.0)
--- NOTE | 2017-04-03 05:22 | RADRPT ---
EXAM DATE/TIME: 04/03/2017 04:41 [facility] COMPARISON: CHEST SINGLE AP, April 02, 2017, 12:56. INDICATIONS : Respiratory failure post CABG MEDICAL HISTORY : Hypertension. Cardiomyopathy. Hyperlipidemia. SURGICAL HISTORY : CABG. ENCOUNTER: Subsequent ACUITY: 2 days PAIN SCORE: Non-responsive. LOCATION: Bilateral chest FINDINGS: A single portable frontal view of the chest shows a left thoracostomy tube. Right central line. A tub e overlies the subxiphoid central portion of the chest likely related to a second chest tube. No pneu mothorax. Minimal left basilar atelectasis. No effusions. Heart is normal in size. Median sternotomy wires. There has been interval removal of the endotracheal tube. CONCLUSION: Minimal left basilar atelectasis. No pneumothorax. Vicente Barber Jr., MD on April 03, 2017 at 5:20 Board Certified Radiologist. This report was verified electronically.
[2017-04-03 05:42] LABS: MAGNESIUM 1.9 MG/DL (1.5-2.5); POTASSIUM 4.3 MEQ/L (3.5-5.1)
[2017-04-03] MEDS: PANTOPRAZOLE SOD 40 MG DELAYED RELEASE TAB PO SCH (07:17)
[2017-04-03] MEDS: SODIUM CHLORIDE 0.9% FLUSH 10 ML FLUSH IV FLUSH SCH ×2 (09:00→21:14)
[2017-04-03] MEDS ORDERED: MULTIVITAMIN INJ 10 ML, THIAMINE INJ 500 MG, FOLIC ACID INJ 1 MG in SODIUM CHLORID 0.9%... IV SCH (09:00)
[2017-04-03] MEDS: AMIODARONE 200 MG TAB PO SCH ×2 (09:09→21:13)
[2017-04-03] MEDS: ASPIRIN 81 MG CHEW TAB PO SCH (09:09)
[2017-04-03] MEDS: CLOPIDOGREL 75 MG TAB PO SCH (09:09)
[2017-04-03] MEDS: CARVEDILOL 6.25 MG TAB PO SCH ×2 (09:09→18:15)
[2017-04-03] MEDS ORDERED: BISACODYL 10 MG SUPP RECTAL PRN (09:15)
[2017-04-03] MEDS ORDERED: GLUCAGON 1 MG/ML VIAL OTHER PRN (09:15)
[2017-04-03] MEDS ORDERED: SOD PHOSPHATE/SOD BIPHOSPHATE (ADULT) ENEMA 133ML RECTAL PRN (09:15)
[2017-04-03] MEDS ORDERED: DEXTROSE 50% IN WATER 50 ML VIAL(D50) IV PUSH PRN (09:15)
[2017-04-03] MEDS: METOCLOPRAMIDE HCL 10 MG/2 ML VIAL IV PUSH SCH ×3 (10:08→18:15)
[2017-04-03] MEDS: INSULIN ASPART SUPPLEMENTAL SCALE SQ SCH ×4 (10:08→22:00)
[2017-04-03] MEDS: KETOROLAC TROMETHAMINE 30 MG/ML (IVP) VIAL IV PUSH PRN ×2 (10:30→17:15)
--- NOTE | 2017-04-03 13:14 | EKG ---
Date Performed: 04/03/2017 Time Performed: 04:46:54 PTAGE: 62 years EKG: Sinus tachycardia. Inferior infarct - age undetermined Abnormal ECG PREVIOUS TRACING : 03/24/2017 07.13 Compared to prior tracing no significant change DOCTOR: Nikolai Philippe Interpretating Date/Time 04/03/2017 13:11:04
[2017-04-03] MEDS: ACETAMINOPHEN/HYDROcodone 325 MG/5 MG TAB PO PRN ×2 (14:32→21:12)
--- NOTE | 2017-04-03 15:47 | PD.CAR.PN ---
CVT Progress Note Subjective/Hospital Course: 62/ male hx of recent ischemic stroke in November 2016 with residual left hand and arm weakness , mild speech defect , underwent nuclear stress test which showed a moderately reversible defect in basal and mid inferior lateral wall, EF 60%, underwent cardaic cath by Dr Cadena which multivessel disease 50% prox LAD, 90% mid distal LAD, diagonal 90%, Circ 100% OM 100% RCA 100%, he was discharged home and brought back in electively PMH < Ischemic stroke US carotid right ICA 100% totally occluded, left high grade proximal stenosis , HTN, HLP, recent dental surgery , on plavix at home surgery: .04/02 Off-pump Coronary Artery Bypass Grafting x 4 with Left Internal Mammary Artery ( GREWAL) to the Left Anterior Descending (LAD), reverse saphenous vein graft to the Diagonal (D1), sequential reverse saphenous vein graft to the Right Posterolateral Branch (RPLB) and to the Right Posterior Descending Artery (RPDA) Left Leg Endoscopic Vein [place] extubated after surgery, crystalloid 2500cc, EBL 600cc, 04/03 pt up in chair, has had some nausea and vomiting reglan added , restarted on BB , on amiodarone, plavix and ASA OOB, OT/ PT eval for rehab at discharge no diuresis today ok to transfer to stepdown later today Objective: GENERAL: SKIN: Warm and dry. prevena dressing to chest , alvin wrap to left leg HEAD: Normocephalic. EYES: No scleral icterus. No injection or drainage. NECK: Supple, trachea midline. No JVD or lymphadenopathy. CARDIOVASCULAR: Regular rate and rhythm without murmurs, gallops, or rubs. mild edema RESPIRATORY: Breath sounds equal bilaterally. No accessory muscle use. chest tube to wall suction, drained 285 cc/ 12 hrs GASTROINTESTINAL: Abdomen soft, non-tender, nondistended. MUSCULOSKELETAL: No cyanosis, or edema. BACK: Nontender without obvious deformity. No CVA tenderness. Vital Signs Date Time Temp Pulse Resp B/P (MAP) Pulse Ox O2 Delivery O2 Flow Rate FiO2 04/03/17 12:01 100 04/03/17 11:10 97.8 102 16 134/78 (96) 100 Arterial Line 04/03/17 11:10 100 Nasal Cannula 2.00 04/03/17 11:01 91 04/03/17 09:54 98 Nasal Cannula 1.00 04/03/17 07:00 100 Nasal Cannula 2.00 04/03/17 07:00 99 04/03/17 07:00 98.1 106 18 130/89 (103) 100 150/86 (107) 04/03/17 03:45 76 04/03/17 03:00 98.1 98 16 115/70 (85) 99 04/03/17 03:00 98 Nasal Cannula 2.00 04/03/17 01:44 16 04/03/17 00:00 83 04/02/17 23:00 98.2 82 16 107/61 (76) 99 04/02/17 23:00 99 Nasal Cannula 2.00 04/02/17 21:18 99 Nasal Cannula 2.00 04/02/17 20:28 98.6 04/02/17 19:00 98.3 83 16 127/71 (89) 99 04/02/17 19:00 98 Nasal Cannula 2.00 04/02/17 19:00 83 04/02/17 16:00 99 Nasal Cannula 3.00 04/02/17 16:00 85 Labs: Laboratory Tests Test 04/03/17 04:50 White Blood Count 15.7 TH/MM3 (4.0-11.0) Red Blood Count 3.76 MIL/MM3 (4.50-5.90) Hemoglobin 11.2 GM/DL (13.0-17.0) Hematocrit 33.4 % (39.0-51.0) Mean Corpuscular Volume 88.7 FL (80.0-100.0) Mean Corpuscular Hemoglobin 29.9 PG (27.0-34.0) Mean Corpuscular Hemoglobin Concent 33.7 % (32.0-36.0) Red Cell Distribution Width 13.3 % (11.6-17.2) Platelet Count 227 TH/MM3 (150-450) Mean Platelet Volume 8.4 FL (7.0-11.0) Blood Urea Nitrogen 8 MG/DL (7-18) Creatinine 0.58 MG/DL (0.60-1.30) Random Glucose 110 MG/DL (74-106) Calcium Level 8.5 MG/DL (8.5-10.1) Magnesium Level 1.9 MG/DL (1.5-2.5) Sodium Level 134 MEQ/L (136-145) Potassium Level 4.3 MEQ/L (3.5-5.1) Chloride Level 103 MEQ/L (98-107) Carbon Dioxide Level 24.0 MEQ/L (21.0-32.0) Anion Gap 7 MEQ/L (5-15) Estimat Glomerular Filtration Rate 142 ML/MIN (>89) Result Diagram: 04/03/1744904/03/17449 Telemetry: NSR (1) Coronary artery disease (2) S/P CABG x 4 Plan: on ASA, statin , BB plavix OOB PT/OT pulm toileting eval for rehab at discharge (3) Carotid arterial disease (4) hx of ischemic stroke Plan: on plavix ASA, will need f/u with vascular surgery as outpt (5) Hyperlipemia Plan: on statin (6) Hypertension Plan: Elodia Zavala Apr 03, 2017 15:47
[2017-04-03] MEDS: SENNOSIDES 8.6 MG TAB PO SCH (21:00)
[2017-04-03] MEDS: DOCUSATE SODIUM 100 MG CAP PO SCH (21:00)
[2017-04-03] MEDS: ONDANSETRON HCL 4 MG/2 ML VIAL IV PUSH PRN (21:10)
[2017-04-03] MEDS: ATORVASTATIN 40 MG TAB PO SCH (21:15)
[2017-04-03] MEDS ORDERED: CARVEDILOL 6.25 MG TAB PO ONE (21:30)
[2017-04-04] VITALS (16 sets, daily range): BP systolic 106–144; BP diastolic 55–83; PULSE 88–114; RESP 16; TEMP 97.7–99; O2SAT 94–100
[2017-04-04] MEDS: ceFAZolin 2 GM PREMIX 50 ML IV SCH (00:57)
[2017-04-04] MEDS: METOCLOPRAMIDE HCL 10 MG/2 ML VIAL IV PUSH SCH ×4 (00:57→18:22)
[2017-04-04] MEDS: KETOROLAC TROMETHAMINE 30 MG/ML (IVP) VIAL IV PUSH PRN ×2 (00:58→09:15)
[2017-04-04] MEDS: INSULIN ASPART SUPPLEMENTAL SCALE SQ SCH ×5 (02:00→21:00)
[2017-04-04] MEDS: RESP: ALBUTEROL 2.5 MG/IPRATROPIUM 0.5 MG NEB (SCH) NEB ×2 (04:00→08:00)
[2017-04-04] MEDS: PANTOPRAZOLE SOD 40 MG DELAYED RELEASE TAB PO SCH (05:21)
[2017-04-04] MEDS: ACETAMINOPHEN/HYDROcodone 325 MG/5 MG TAB PO PRN ×2 (05:22→12:35)
[2017-04-04 05:56] LABS: AUTOMATED NEUTROPHIL # 6.3 TH/MM3 (1.8-7.7); BASOPHIL % 0.2 % (0.0-2.0); EOSINOPHIL % 0.4 % (0.0-4.0); HEMATOCRIT 28.4 % (39.0-51.0); HEMO FLAGS DIFF FINAL; LYMPH % 17.8 % (9.0-44.0); LYMPHOCYTE # 1.6 TH/MM3 (1.0-4.8); MEAN CELL VOLUME 89.5 FL (80.0-100.0); MEAN CORPUSCULAR HEMOGLOBIN 30.6 PG (27.0-34.0); MEAN CORPUSCULAR HGB CONC 34.2 % (32.0-36.0); MONO % 12.5 % (0.0-8.0); NEUT % 69.1 % (16.0-70.0); PLATELET COUNT 175 TH/MM3 (150-450); RED BLOOD COUNT 3.17 MIL/MM3 (4.50-5.90); RED CELL DISTRIBUTION WIDTH 13.9 % (11.6-17.2); WHITE BLOOD COUNT 9.1 TH/MM3 (4.0-11.0)
[2017-04-04 06:05] LABS: BICARBONATE 28.5 MEQ/L (21.0-32.0); POTASSIUM 4.5 MEQ/L (3.5-5.1)
[2017-04-04] MEDS: POLYETHYLENE GLYCOL 17 GM PKG PO SCH (09:00)
[2017-04-04] MEDS: SODIUM CHLORIDE 0.9% FLUSH 10 ML FLUSH IV FLUSH SCH ×2 (09:00→23:27)
[2017-04-04] MEDS: DOCUSATE SODIUM 100 MG CAP PO SCH ×2 (09:07→23:03)
[2017-04-04] MEDS: MAGNESIUM HYDROXIDE SUSP 30 ML CUP PO SCH (09:07)
[2017-04-04] MEDS: CARVEDILOL 6.25 MG TAB PO SCH ×2 (09:07→23:03)
[2017-04-04] MEDS: CLOPIDOGREL 75 MG TAB PO SCH (09:07)
[2017-04-04] MEDS: ASPIRIN 81 MG CHEW TAB PO SCH (09:08)
[2017-04-04] MEDS: AMIODARONE 200 MG TAB PO SCH ×2 (09:08→23:03)
[2017-04-04] MEDS: MULTIVITAMINS/MINERALS THERAPEUTIC TAB PO SCH (09:08)
--- NOTE | 2017-04-04 09:22 | PD.CAR.PN ---
CVT Progress Note Subjective/Hospital Course: 62/ male hx of recent ischemic stroke in November 2016 with residual left hand and arm weakness , mild speech defect , underwent nuclear stress test which showed a moderately reversible defect in basal and mid inferior lateral wall, EF 60%, underwent cardaic cath by Dr aCdena which multivessel disease 50% prox LAD, 90% mid distal LAD, diagonal 90%, Circ 100% OM 100% RCA 100%, he was discharged home and brought back in electively PMH < Ischemic stroke US carotid right ICA 100% totally occluded, left high grade proximal stenosis , HTN, HLP, recent dental surgery , on plavix at home surgery: .04/02 Off-pump Coronary Artery Bypass Grafting x 4 with Left Internal Mammary Artery ( GREWAL) to the Left Anterior Descending (LAD), reverse saphenous vein graft to the Diagonal (D1), sequential reverse saphenous vein graft to the Right Posterolateral Branch (RPLB) and to the Right Posterior Descending Artery (RPDA) Left Leg Endoscopic Vein [place] extubated after surgery, crystalloid 2500cc, EBL 600cc, 04/03 pt up in chair, has had some nausea and vomiting reglan added , restarted on BB , on amiodarone, plavix and ASA OOB, OT/ PT eval for rehab at discharge no diuresis today ok to transfer to stepdown later today 04/04 Doing well Sinus tachycardia. On Coreg. Increased to 12.5 BID D/C CT today Discharge planning Objective: Vital Signs Date Time Temp Pulse Resp B/P (MAP) Pulse Ox O2 Delivery O2 Flow Rate FiO2 04/04/17 07:00 98.3 96 16 122/73 (89) 100 04/04/17 07:00 93 04/04/17 07:00 100 Nasal Cannula 2.00 04/04/17 06:33 98.1 107 16 106/69 (81) 100 04/04/17 03:09 96 Room Air 04/04/17 03:00 92 04/04/17 02:00 90 04/04/17 01:00 100 04/04/17 00:00 98 04/03/17 23:17 93 Room Air 04/03/17 23:14 98.3 114 16 116/68 (84) 97 04/03/17 23:00 99 04/03/17 22:00 102 04/03/17 21:00 114 04/03/17 20:00 108 04/03/17 20:00 93 Room Air 04/03/17 20:00 98.2 114 16 116/57 (76) 93 04/03/17 19:37 99 Nasal Cannula 2.00 04/03/17 19:00 109 04/03/17 18:00 104 04/03/17 17:00 90 04/03/17 16:00 88 04/03/17 15:01 116 04/03/17 15:01 100 Nasal Cannula 2.00 04/03/17 15:01 98.0 116 16 156/83 (107) 100 04/03/17 15:00 121 04/03/17 12:01 100 04/03/17 11:10 97.8 102 16 134/78 (96) 100 Arterial Line 04/03/17 11:10 100 Nasal Cannula 2.00 04/03/17 11:01 91 04/03/17 09:54 98 Nasal Cannula 1.00 Labs: Laboratory Tests Test 04/04/17 05:30 White Blood Count 9.1 TH/MM3 (4.0-11.0) Red Blood Count 3.17 MIL/MM3 (4.50-5.90) Hemoglobin 9.7 GM/DL (13.0-17.0) Hematocrit 28.4 % (39.0-51.0) Mean Corpuscular Volume 89.5 FL (80.0-100.0) Mean Corpuscular Hemoglobin 30.6 PG (27.0-34.0) Mean Corpuscular Hemoglobin Concent 34.2 % (32.0-36.0) Red Cell Distribution Width 13.9 % (11.6-17.2) Platelet Count 175 TH/MM3 (150-450) Mean Platelet Volume 8.6 FL (7.0-11.0) Neutrophils (%) (Auto) 69.1 % (16.0-70.0) Lymphocytes (%) (Auto) 17.8 % (9.0-44.0) Monocytes (%) (Auto) 12.5 % (0.0-8.0) Eosinophils (%) (Auto) 0.4 % (0.0-4.0) Basophils (%) (Auto) 0.2 % (0.0-2.0) Neutrophils # (Auto) 6.3 TH/MM3 (1.8-7.7) Lymphocytes # (Auto) 1.6 TH/MM3 (1.0-4.8) Monocytes # (Auto) 1.1 TH/MM3 (0-0.9) Eosinophils # (Auto) 0.0 TH/MM3 (0-0.4) Basophils # (Auto) 0.0 TH/MM3 (0-0.2) CBC Comment DIFF FINAL Differential Comment Blood Urea Nitrogen 11 MG/DL (7-18) Creatinine 0.71 MG/DL (0.60-1.30) Random Glucose 102 MG/DL (74-106) Calcium Level 8.2 MG/DL (8.5-10.1) Magnesium Level 2.0 MG/DL (1.5-2.5) Sodium Level 136 MEQ/L (136-145) Potassium Level 4.5 MEQ/L (3.5-5.1) Chloride Level 102 MEQ/L (98-107) Carbon Dioxide Level 28.5 MEQ/L (21.0-32.0) Anion Gap 6 MEQ/L (5-15) Estimat Glomerular Filtration Rate 113 ML/MIN (>89) Result Diagram: 04/04/1752904/04/17529 (1) Coronary artery disease (2) S/P CABG x 4 Plan: on ASA, statin , BB plavix OOB PT/OT pulm toileting eval for rehab at discharge (3) Carotid arterial disease (4) hx of ischemic stroke Plan: on plavix ASA, will need f/u with vascular surgery as outpt (5) Hyperlipemia Plan: on statin (6) Hypertension Plan: Anjelica Chinchilla MD Apr 04, 2017 09:22
[2017-04-04] MEDS: SENNOSIDES 8.6 MG TAB PO SCH (23:04)
[2017-04-04] MEDS: ATORVASTATIN 40 MG TAB PO SCH (23:04)
[2017-04-05] VITALS (16 sets, daily range): BP systolic 117–172; BP diastolic 64–97; PULSE 86–107; RESP 16–18; TEMP 97.8–98.9; O2SAT 97–99
[2017-04-05] MEDS: METOCLOPRAMIDE HCL 10 MG/2 ML VIAL IV PUSH SCH ×4 (00:24→18:23)
[2017-04-05] MEDS: ACETAMINOPHEN/HYDROcodone 325 MG/5 MG TAB PO PRN ×4 (03:50→21:26)
[2017-04-05] MEDS: PANTOPRAZOLE SOD 40 MG DELAYED RELEASE TAB PO SCH (06:12)
[2017-04-05] MEDS: INSULIN ASPART SUPPLEMENTAL SCALE SQ SCH ×4 (08:00→21:00)
[2017-04-05] MEDS: RESP: ALBUTEROL 2.5 MG/IPRATROPIUM 0.5 MG NEB (SCH) NEB (08:00)
[2017-04-05] MEDS: DOCUSATE SODIUM 100 MG CAP PO SCH ×2 (09:18→21:25)
[2017-04-05] MEDS: POLYETHYLENE GLYCOL 17 GM PKG PO SCH (09:18)
[2017-04-05] MEDS: SODIUM CHLORIDE 0.9% FLUSH 10 ML FLUSH IV FLUSH SCH ×2 (09:18→21:25)
[2017-04-05] MEDS: CLOPIDOGREL 75 MG TAB PO SCH (09:18)
[2017-04-05] MEDS: MAGNESIUM HYDROXIDE SUSP 30 ML CUP PO SCH (09:19)
[2017-04-05] MEDS: CARVEDILOL 6.25 MG TAB PO SCH ×2 (09:19→21:24)
[2017-04-05] MEDS: AMIODARONE 200 MG TAB PO SCH ×2 (09:19→21:25)
[2017-04-05] MEDS: MULTIVITAMINS/MINERALS THERAPEUTIC TAB PO SCH (09:19)
[2017-04-05] MEDS: ASPIRIN 81 MG CHEW TAB PO SCH (09:19)
--- NOTE | 2017-04-05 10:54 | PD.CAR.PN ---
CVT Progress Note Subjective/Hospital Course: 62/ male hx of recent ischemic stroke in November 2016 with residual left hand and arm weakness , mild speech defect , underwent nuclear stress test which showed a moderately reversible defect in basal and mid inferior lateral wall, EF 60%, underwent cardaic cath by Dr Cadena which multivessel disease 50% prox LAD, 90% mid distal LAD, diagonal 90%, Circ 100% OM 100% RCA 100%, he was discharged home and brought back in electively PMH < Ischemic stroke US carotid right ICA 100% totally occluded, left high grade proximal stenosis , HTN, HLP, recent dental surgery , on plavix at home surgery: .04/02 Off-pump Coronary Artery Bypass Grafting x 4 with Left Internal Mammary Artery ( GREWAL) to the Left Anterior Descending (LAD), reverse saphenous vein graft to the Diagonal (D1), sequential reverse saphenous vein graft to the Right Posterolateral Branch (RPLB) and to the Right Posterior Descending Artery (RPDA) Left Leg Endoscopic Vein [place] extubated after surgery, crystalloid 2500cc, EBL 600cc, 10/ pt up in chair, has had some nausea and vomiting reglan added , restarted on BB , on amiodarone, plavix and ASA OOB, OT/ PT eval for rehab at discharge no diuresis today ok to transfer to stepdown later today 04/04 Doing well Sinus tachycardia. On Coreg. Increased to 12.5 BID D/C CT today Discharge planning 04/05 Doing well Rehab evaluation Ambulate Objective: Vital Signs Date Time Temp Pulse Resp B/P (MAP) Pulse Ox O2 Delivery O2 Flow Rate FiO2 04/05/17 10:24 16 04/05/17 08:00 97 21 04/05/17 07:00 98 Room Air 04/05/17 07:00 90 04/05/17 07:00 98.3 107 18 172/97 (122) 98 04/05/17 04:10 98.9 99 18 117/70 (86) 97 04/05/17 04:08 96 Room Air 04/05/17 04:00 90 04/05/17 03:00 98 04/05/17 02:00 90 04/05/17 01:00 86 04/05/17 00:00 88 04/04/17 23:19 98.5 94 16 109/55 (73) 97 04/04/17 23:17 97 Room Air 04/04/17 23:00 88 04/04/17 22:58 91 04/04/17 22:00 108 04/04/17 21:00 114 04/04/17 20:30 99.0 100 16 134/83 (100) 95 04/04/17 20:15 95 Room Air 04/04/17 20:00 112 04/04/17 19:00 109 04/04/17 15:00 94 Nasal Cannula 2.00 04/04/17 15:00 98.8 104 16 144/82 (102) 94 04/04/17 15:00 104 04/04/17 11:00 95 Room Air 04/04/17 11:00 97.7 110 16 122/73 (89) 95 04/04/17 11:00 112 Result Diagram: 04/04/1752904/04/17 0530 (1) Coronary artery disease (2) S/P CABG x 4 Plan: on ASA, statin , BB plavix OOB PT/OT pulm toileting eval for rehab at discharge (3) Carotid arterial disease (4) hx of ischemic stroke Plan: on plavix ASA, will need f/u with vascular surgery as outpt (5) Hyperlipemia Plan: on statin (6) Hypertension Plan: Anjelica Chinchilla MD Apr 05, 2017 10:53
[2017-04-05] MEDS: SENNOSIDES 8.6 MG TAB PO SCH (21:24)
[2017-04-05] MEDS: ATORVASTATIN 40 MG TAB PO SCH (21:25)
[2017-04-06] VITALS (32 sets, daily range): BP systolic 110–161; BP diastolic 69–97; PULSE 82–99; RESP 16–18; TEMP 98.2–98.6; O2SAT 94–99
[2017-04-06] MEDS: METOCLOPRAMIDE HCL 10 MG/2 ML VIAL IV PUSH SCH ×3 (00:14→12:22)
[2017-04-06] MEDS: PANTOPRAZOLE SOD 40 MG DELAYED RELEASE TAB PO SCH (06:04)
[2017-04-06] MEDS: ACETAMINOPHEN/HYDROcodone 325 MG/5 MG TAB PO PRN ×3 (06:21→20:09)
[2017-04-06] MEDS: INSULIN ASPART SUPPLEMENTAL SCALE SQ SCH ×4 (08:00→21:00)
[2017-04-06] MEDS: POLYETHYLENE GLYCOL 17 GM PKG PO SCH (09:00)
[2017-04-06] MEDS: SODIUM CHLORIDE 0.9% FLUSH 10 ML FLUSH IV FLUSH SCH ×2 (09:00→21:01)
[2017-04-06] MEDS: CARVEDILOL 6.25 MG TAB PO SCH ×2 (09:12→21:00)
[2017-04-06] MEDS: MULTIVITAMINS/MINERALS THERAPEUTIC TAB PO SCH (09:13)
[2017-04-06] MEDS: MAGNESIUM HYDROXIDE SUSP 30 ML CUP PO SCH (09:13)
[2017-04-06] MEDS: AMIODARONE 200 MG TAB PO SCH ×2 (09:14→21:01)
[2017-04-06] MEDS: DOCUSATE SODIUM 100 MG CAP PO SCH ×2 (09:14→21:00)
[2017-04-06] MEDS: CLOPIDOGREL 75 MG TAB PO SCH (09:14)
[2017-04-06] MEDS ORDERED: FUROSEMIDE 20 MG/2 ML VIAL IV PUSH ONE (09:15)
[2017-04-06] MEDS: ASPIRIN 81 MG CHEW TAB PO SCH (09:15)
--- NOTE | 2017-04-06 16:18 | PD.CAR.PN ---
CVT Progress Note Subjective/Hospital Course: 62/ male hx of recent ischemic stroke in November 2016 with residual left hand and arm weakness , mild speech defect , underwent nuclear stress test which showed a moderately reversible defect in basal and mid inferior lateral wall, EF 60%, underwent cardaic cath by Dr Cadena which multivessel disease 50% prox LAD, 90% mid distal LAD, diagonal 90%, Circ 100% OM 100% RCA 100%, he was discharged home and brought back in electively PMH < Ischemic stroke US carotid right ICA 100% totally occluded, left high grade proximal stenosis , HTN, HLP, recent dental surgery , on plavix at home surgery: .04/02 Off-pump Coronary Artery Bypass Grafting x 4 with Left Internal Mammary Artery ( GREWAL) to the Left Anterior Descending (LAD), reverse saphenous vein graft to the Diagonal (D1), sequential reverse saphenous vein graft to the Right Posterolateral Branch (RPLB) and to the Right Posterior Descending Artery (RPDA) Left Leg Endoscopic Vein [place] extubated after surgery, crystalloid 2500cc, EBL 600cc, 04/03 pt up in chair, has had some nausea and vomiting reglan added , restarted on BB , on amiodarone, plavix and ASA OOB, OT/ PT eval for rehab at discharge no diuresis today ok to transfer to stepdown later today 04/04 Doing well Sinus tachycardia. On Coreg. Increased to 12.5 BID D/C CT today Discharge planning 04/05 Doing well Rehab evaluation Ambulate 04/06 pt had shower this am , felt faint afterward, no syncope BP was stable, HR stable, ECG no change, amiodarone and BB decreased was given dose of lasix earlier this am , and had BM, possible vasovagal reaction eval for possible transfer to rehab in am Objective: GENERAL: SKIN: Warm and dry. dressing D&I mid sternum HEAD: Normocephalic. EYES: No scleral icterus. No injection or drainage. NECK: Supple, trachea midline. No JVD or lymphadenopathy. CARDIOVASCULAR: Regular rate and rhythm without murmurs, gallops, or rubs. RESPIRATORY: Breath sounds equal bilaterally. No accessory muscle use. GASTROINTESTINAL: Abdomen soft, non-tender, nondistended. MUSCULOSKELETAL: No cyanosis, or edema. BACK: Nontender without obvious deformity. No CVA tenderness. Neuro: left sided weakness unchanged , contractures to left hand Vital Signs Date Time Temp Pulse Resp B/P (MAP) Pulse Ox O2 Delivery O2 Flow Rate FiO2 04/06/17 15:55 94 Room Air 04/06/17 15:55 98.6 88 18 132/76 (94) 98 04/06/17 15:00 82 04/06/17 14:00 83 132/78 (96) 04/06/17 14:00 83 04/06/17 13:00 86 04/06/17 12:00 95 Room Air 04/06/17 12:00 88 04/06/17 12:00 98.3 88 18 128/76 (93) 98 04/06/17 11:00 86 04/06/17 10:00 84 04/06/17 09:00 88 04/06/17 08:00 88 04/06/17 08:00 98.2 88 18 148/88 (108) 98 04/06/17 07:44 94 Room Air 04/06/17 07:40 95 04/06/17 07:21 16 04/06/17 07:00 84 04/06/17 04:14 98.4 92 16 131/79 (96) 98 04/06/17 03:23 94 Room Air 04/06/17 03:00 92 04/06/17 02:12 21 04/06/17 02:00 88 04/06/17 01:00 88 04/06/17 00:00 92 04/06/17 00:00 98.6 92 16 134/77 (96) 98 04/05/17 23:54 97 Room Air 04/05/17 23:00 95 04/05/17 22:00 100 04/05/17 21:00 98 04/05/17 20:50 98.5 104 16 129/64 (85) 97 04/05/17 20:40 97 Room Air 04/05/17 20:00 104 04/05/17 19:00 101 Result Diagram: 04/04/1752904/04/17529 (1) Coronary artery disease (2) S/P CABG x 4 Plan: on ASA, statin , BB plavix BB and amiodarone decrease, presyncope episode OOB PT/OT pulm toileting rehab at discharge (3) Carotid arterial disease Plan: will need f/u with Dr Timmons as outpt continue ASA, plavix (4) hx of ischemic stroke Plan: on plavix ASA, will need f/u with vascular surgery as outpt (5) Hyperlipemia Plan: on statin (6) Hypertension Plan: Elodia Zavala Apr 06, 2017 16:18
[2017-04-06 17:40] LABS: AUTOMATED NEUTROPHIL # 6.2 TH/MM3 (1.8-7.7); BASOPHIL % 0.4 % (0.0-2.0); EOSINOPHIL # 0.2 TH/MM3 (0-0.4); EOSINOPHIL % 2.8 % (0.0-4.0); HEMATOCRIT 35.6 % (39.0-51.0); HEMO FLAGS DIFF FINAL; LYMPH % 12.6 % (9.0-44.0); MEAN CELL VOLUME 90.5 FL (80.0-100.0); MEAN CORPUSCULAR HEMOGLOBIN 29.8 PG (27.0-34.0); MONO % 7.6 % (0.0-8.0); NEUT % 76.6 % (16.0-70.0); PLATELET COUNT 311 TH/MM3 (150-450); RED BLOOD COUNT 3.93 MIL/MM3 (4.50-5.90); RED CELL DISTRIBUTION WIDTH 13.6 % (11.6-17.2); WHITE BLOOD COUNT 8.1 TH/MM3 (4.0-11.0)
[2017-04-06 17:46] LABS: ALT (GPT) 14 U/L (12-78); ANION GAP 8 MEQ/L (5-15); AST (GOT) 15 U/L (15-37); BICARBONATE 28.9 MEQ/L (21.0-32.0); BLOOD UREA NITROGEN 12 MG/DL (7-18); CHLORIDE 102 MEQ/L (98-107); GLOMERULAR FILTRATION RATE 117 ML/MIN (>89); POTASSIUM 4.1 MEQ/L (3.5-5.1); SODIUM (NA) 139 MEQ/L (136-145)
[2017-04-06 17:49] LABS: ALKALINE PHOSPHATASE 63 U/L (45-117); TOTAL BILIRUBIN ADULT 0.4 MG/DL (0.2-1.0)
[2017-04-06] MEDS: ATORVASTATIN 40 MG TAB PO SCH (21:00)
[2017-04-06] MEDS: SENNOSIDES 8.6 MG TAB PO SCH (21:00)
[2017-04-07] VITALS (19 sets, daily range): BP systolic 128–142; BP diastolic 76–79; PULSE 77–95; RESP 17–20; TEMP 97.8–98; O2SAT 98
[2017-04-07 05:21] LABS: MEAN CELL VOLUME 89.2 FL (80.0-100.0); MEAN CORPUSCULAR HEMOGLOBIN 29.9 PG (27.0-34.0); MEAN CORPUSCULAR HGB CONC 33.5 % (32.0-36.0); PLATELET COUNT 289 TH/MM3 (150-450); RED BLOOD COUNT 3.58 MIL/MM3 (4.50-5.90); RED CELL DISTRIBUTION WIDTH 13.6 % (11.6-17.2); REVIEW FLAG FINAL; WHITE BLOOD COUNT 7.8 TH/MM3 (4.0-11.0)
[2017-04-07 05:45] LABS: BICARBONATE 26.9 MEQ/L (21.0-32.0); MAGNESIUM 2.3 MG/DL (1.5-2.5); POTASSIUM 3.5 MEQ/L (3.5-5.1)
[2017-04-07] MEDS: PANTOPRAZOLE SOD 40 MG DELAYED RELEASE TAB PO SCH (06:09)
[2017-04-07] MEDS: INSULIN ASPART SUPPLEMENTAL SCALE SQ SCH ×2 (07:02→11:42)
[2017-04-07] MEDS: DOCUSATE SODIUM 100 MG CAP PO SCH (09:00)
[2017-04-07] MEDS: MAGNESIUM HYDROXIDE SUSP 30 ML CUP PO SCH (09:00)
[2017-04-07] MEDS: SODIUM CHLORIDE 0.9% FLUSH 10 ML FLUSH IV FLUSH SCH (09:00)
[2017-04-07] MEDS: POLYETHYLENE GLYCOL 17 GM PKG PO SCH (09:00)
[2017-04-07] MEDS: CARVEDILOL 6.25 MG TAB PO SCH (09:09)
[2017-04-07] MEDS: ONDANSETRON HCL 4 MG/2 ML VIAL IV PUSH PRN (09:09)
[2017-04-07] MEDS: CLOPIDOGREL 75 MG TAB PO SCH (09:09)
[2017-04-07] MEDS: ASPIRIN 81 MG CHEW TAB PO SCH (09:10)
[2017-04-07] MEDS: AMIODARONE 200 MG TAB PO SCH (09:10)
[2017-04-07] MEDS: MULTIVITAMINS/MINERALS THERAPEUTIC TAB PO SCH (09:10)
--- NOTE | 2017-04-07 10:11 | EKG ---
Date Performed: 04/06/2017 Time Performed: 15:11:42 PTAGE: 62 years EKG: Sinus rhythm with 1st degree A-V block Inferior infarct - age undetermined Lateral ST-T changes are nonspecific A bnormal ECG PREVIOUS TRACING : 04/03/2017 04.46 Compared to prior tracing no significant change DOCTOR: Constantino Woodard Interpretating Date/Time 04/07/2017 10:07:43
[2017-04-07] MEDS ORDERED: DOCU1CAP39 PO (15:05)
[2017-04-07] MEDS ORDERED: THERM PO (15:05)
[2017-04-07] MEDS ORDERED: ASPI81CH25 PO (15:05)
[2017-04-07] MEDS ORDERED: HYDR-3516 PO (15:05)
[2017-04-07] MEDS ORDERED: POLY17S PO (15:05)
[2017-04-07] MEDS ORDERED: AMIO200T PO (15:05)
--- NOTE | 2017-04-07 15:29 | HHI.DS ---
Discharge Summary Admission Date Apr 02, 2017 at 05:31 Discharge Date: Apr 07, 2017 Admitting Diagnosis CAD (1) Coronary artery disease Diagnosis: Principal ICD Codes: I25.10 - Atherosclerotic heart disease of [place] coronary artery without angina pectoris (2) Hyperlipemia Diagnosis: Principal ICD Codes: E78.5 - Hyperlipidemia, unspecified Status: Chronic (3) Hypertension Diagnosis: Principal ICD Codes: I10 - Essential (primary) hypertension Status: Chronic (4) Carotid arterial disease Diagnosis: Principal ICD Codes: I77.9 - Disorder of arteries and arterioles, unspecified Status: Chronic (5) hx of ischemic stroke Diagnosis: Principal Status: Chronic (6) S/P CABG x 4 Diagnosis: Principal ICD Codes: Z95.1 - Presence of aortocoronary bypass graft Status: Acute Procedures 04/02 1. Off-pump Coronary Artery Bypass Grafting x 4 with Left Internal Mammary Artery (GREWAL) to the Left Anterior Descending (LAD), reverse saphenous vein graft to the Diagonal (D1), sequential reverse saphenous vein graft to the Right Posterolateral Branch (RPLB) and to the Right Posterior Descending Artery (RPDA) 2. Left Leg Endoscopic Vein Sledge 3. Intraoperative Vein Mapping Brief History 62/ male hx of recent ischemic stroke in November 2016 with residual left hand and arm weakness , mild speech defect , underwent nuclear stress test which showed a moderately reversible defect in basal and mid inferior lateral wall, EF 60%, underwent cardaic cath by Dr Cadena which multivessel disease 50% prox LAD, 90% mid distal LAD, diagonal 90%, Circ 100% OM 100% RCA 100%, he was discharged home and brought back in electively PMH < Ischemic stroke US carotid right ICA 100% totally occluded, left high grade proximal stenosis , HTN, HLP, recent dental surgery , on plavix at home surgery: .04/02 Off-pump Coronary Artery Bypass Grafting x 4 with Left Internal Mammary Artery ( GREWAL) to the Left Anterior Descending (LAD), reverse saphenous vein graft to the Diagonal (D1), sequential reverse saphenous vein graft to the Right Posterolateral Branch (RPLB) and to the Right Posterior Descending Artery (RPDA) Left Leg Endoscopic Vein Sledge extubated after surgery, crystalloid 2500cc, EBL 600cc, CBC/BMP: 04/07/17 0437 04/07/17 0437 Significant Findings Laboratory Tests Test 04/06/17 16:18 04/07/17 04:37 Red Blood Count 3.93 MIL/MM3 (4.50-5.90) 3.58 MIL/MM3 (4.50-5.90) Hemoglobin 11.7 GM/DL (13.0-17.0) 10.7 GM/DL (13.0-17.0) Hematocrit 35.6 % (39.0-51.0) 32.0 % (39.0-51.0) Neutrophils (%) (Auto) 76.6 % (16.0-70.0) Albumin 3.0 GM/DL (3.4-5.0) Calcium Level 8.3 MG/DL (8.5-10.1) Imaging Last Impressions Chest X-Ray 04/03/17 0500 Signed Impressions: Service Date/Time: Monday, April 03, 2017 04:41 - CONCLUSION: Minimal left basilar atelectasis. No pneumothorax. Vicente Barber Jr., MD PE at Discharge GENERAL: SKIN: Warm and dry.prevena dressing to chest , incision intact to leg HEAD: Normocephalic. EYES: No scleral icterus. No injection or drainage. NECK: Supple, trachea midline. No JVD or lymphadenopathy. CARDIOVASCULAR: Regular rate and rhythm without murmurs, gallops, or rubs. RESPIRATORY: Breath sounds equal bilaterally. No accessory muscle use. diminished in bases GASTROINTESTINAL: Abdomen soft, non-tender, nondistended. MUSCULOSKELETAL: No cyanosis, or edema. BACK: Nontender without obvious deformity. No CVA tenderness. Neuro: left arm weakness and contractures Hospital Course 04/03 pt up in chair, has had some nausea and vomiting reglan added , restarted on BB , on amiodarone, plavix and ASA OOB, OT/ PT eval for rehab at discharge no diuresis today ok to transfer to stepdown later today 04/04 Doing well Sinus tachycardia. On Coreg. Increased to 12.5 BID D/C CT today Discharge planning 04/05 Doing well Rehab evaluation Ambulate 04/06 pt had shower this am , felt faint afterward, no syncope BP was stable, HR stable, ECG no change, amiodarone and BB decreased was given dose of lasix earlier this am , and had BM, possible vasovagal reaction eval for possible transfer to rehab in am 04/07 ortho static BP HR ok no further lightheadedness stable for dc to rehab continue current meds Pt Condition on Discharge: Good Discharge Disposition: Discharge to SNF Discharge Instructions DIET: Follow Instructions for: Heart Healthy Diet Activities you can perform: Full Weight Bearing, Shower Only-No Bath Activities to avoid: Strenuous Activity, Driving Additional Activity Instructio: no lifting > 8 lbs or gallon of milk New Medications: Amiodarone (Amiodarone) 200 Mg Tab 200 MG PO Q12HR for heart rhythm, #28 TAB 0 Refills for 14 days only , no refill Aspirin (Aspirin Low Strength) 81 Mg Chew 81 MG PO DAILY for Blood Clot Prevention, #30 EA 3 Refills Docusate Sodium (Dok) 100 Mg Cap 100 MG PO BID for Constipation, #60 CAP 0 Refills Hydrocodone-Acetaminophen (Hydrocodone-Acetaminophen) 5-325 mg Tab 1 TAB PO Q4H PRN for PAIN SCALE 1 TO 5, #40 TAB 0 Refills Multiple Vitamins W/ Minerals (Thera M Plus) 1 Tab 1 TAB PO DAILY for multi vitamin, #30 TAB 3 Refills Polyethylene Glycol 3350 Powder (Polyethylene Glycol 3350 Powder) 17 Gram Pow 17 GM PO DAILY for Constipation, #30 PACK Continued Medications: Atorvastatin (Atorvastatin) 40 Mg Tab 40 MG PO HS for Cholesterol Management, TAB 0 Refills Carvedilol (Carvedilol) 6.25 Mg Tab 6.25 MG PO BID, TAB 0 Refills Clopidogrel (Clopidogrel) 75 Mg Tab 75 MG PO DAILY for Blood Clot Prevention, TAB 0 Refills Ergocalciferol (Ergocalciferol) 50,000 Unit Cap 14725 UNITS PO Q7D for Nutritional Supplement, CAP 0 Refills Fluticasone Nasal [place] (Fluticasone Nasal [place]) 50 Mcg/Act Naspr 50 MCG EACH NARE BID PRN for Allergy Management, BOTTLE 0 Refills 50 mcg/spray Ketoconazole Topical (Ketoconazole Topical) 2% Cream 1 APPLIC TOPICAL DAILY for Fungal Infection, GM 0 Refills Lisinopril (Lisinopril) 10 Mg Tab 10 MG PO DAILY, TAB 0 Refills Loratadine (Claritin) 10 Mg Cap 10 MG PO DAILY PRN for Allergy Management, CAP 0 Refills Magnesium Oxide (Magnesium Oxide) 400 Mg Tab 400 MG PO DAILY for Nutritional Supplement, TAB 0 Refills Discontinued Medications: Aspirin (Aspirin) 325 Mg Tab 325 MG PO DAILY, TAB 0 Refills Isosorbide Mononitrate ER (Isosorbide Mononitrate ER) 30 Mg Juan 30 MG PO DAILY for Prevent Chest Pain, TAB 0 Refills Naproxen Sodium (Naproxen Sodium) 220 Mg Tab 220 MG PO BID PRN for Pain Management, TAB 0 Refills Nitroglycerin SL (Nitrostat SL) 0.4 Mg Subl 0.4 MG SL DIRECTED PRN for CHEST PAIN, #100 TAB.SL 0 Refills 1 tablet under the tongue as needed for chest pain. Repeat every 5 minutes for a total of 3 DOSES or call 911 if NO relief. Potassium Gluconate (Potassium Gluconate) 595 Mg (99 Mg) Tab 1 TAB PO DAILY Elodia Lauren Apr 07, 2017 15:29
[2017-04-07] MEDS ORDERED: CARVEDILOL 6.25 MG TAB PO SCH (21:00)
== END 2017-04-07 17:47 | DRG 236 ==
LOC: HSDI 05:31 → HCVI 12:15 → HCPC 04-03 10:45
PROVIDERS: ADMIT Thoracic Surgery (Cardiothoracic Vascular Surgery); ATTEND Thoracic Surgery (Cardiothoracic Vascular Surgery)
PROC: 06BQ4ZZ Excision of Left Saphenous Vein, Percutaneous Endoscopic Approach (ICD-10-PCS; 2017-04-02)
PROC: 3E0T3BZ Introduction of Anesthetic Agent into Peripheral Nerves and Plexi, Percutaneous Approach (ICD-10-PCS; 2017-04-02)
PROC: 02100Z9 Bypass Coronary Artery, One Artery from Left Internal Mammary, Open Approach (ICD-10-PCS; principal; 2017-04-02 07:19)
PROC: 021209W Bypass Coronary Artery, Three Arteries from Aorta with Autologous Venous Tissue, Open Approach (ICD-10-PCS; 2017-04-02 07:19)
DX: I25.10 Atherosclerotic heart disease of native coronary artery without angina pectoris (principal); I65.29 Occlusion and stenosis of unspecified carotid artery; I10 Essential (primary) hypertension; E78.5 Hyperlipidemia, unspecified; R00.0 Tachycardia, unspecified; Z79.02 Long term (current) use of antithrombotics/antiplatelets; I69.323 Fluency disorder following cerebral infarction; I69.344 Monoplegia of lower limb following cerebral infarction affecting left non-dominant side
CPT/HCPCS: 71010; 76937; 80048; 80053; 82948; 83735; 85014; 85025; 85027; 86850; 86900; 86901; 86920; 93005; 94002; 94150; 94640; 94664; 94667; 94668; C1768; C9290; J0131; J0690; J1100; J1250; J1644; J1815; J1817; J1885; J1940; J2250; J2270; J2370; J2405; J2720; J2765; J3010; J3370; J3475; J3480; J7120

== ENCOUNTER 2017-04-15 10:47 | Emergency (ER) | payer OTHER ==
[~2017-04-15] VITALS: Ht 167.6 cm; Wt 68.0 kg
[~2017-04-15 10:47] MED LIST changes: +AMIO200T PO; -ASPI325T PO; +ASPI81CH25 PO; +DOCU1CAP39 PO; +HYDR-3516 PO; -ISOS30TA3 PO; -MEDI220T PO; -NITR0.4S SL; +POLY17S PO; -POTA595T PO; +THERM PO
[2017-04-15 11:03] VITALS: BP 138/85; PULSE 75; RESP 16; TEMP 98.4; O2SAT 99
--- NOTE | 2017-04-15 11:28 | PD ---
HPI Chief Complaint: Syncope/Near-Syncope Time Seen by Provider: 11:19 Travel History International Travel<30 days: No Contact w/Intl Traveler<30days: No Traveled to known affect area: No History of Present Illness HPI 62-year-old male with history of CVA at the beginning of the year and left- sided residual weakness, CAD, CABG 4 on April 02 of this year, presents to the emergency department for evaluation of a near syncopal episode at rehabilitation. Patient states he was sitting at rehabilitation and he had heating pads on his back and shoulder and lap. They were manipulating his left wrist and this is very painful. He states all of a sudden he became very hot, lightheaded, and felt like he was going to pass out. He states he did remain conscious throughout the entire event. He was diaphoretic but states he also had several heating pads on him. Denies any chest pain or tightness. No difficulty breathing. He was nauseous following the incident. He has no other symptoms to report. PFSH Past Medical History Cancer: No Cardiovascular Problems: Yes (CABAG ) Chest Pain: No Cerebrovascular Accident: Yes Diabetes: No Endocrine: No Gastrointestinal Disorders: Yes (DIVERTICULOSIS, GERD) Glaucoma: No Genitourinary: Yes (RETENTION) Hepatitis: No Hiatal Hernia: No Hypertension: Yes Immune Disorder: No Musculoskeletal: Yes (LEFT SHOULDER PAIN) Neurologic: Yes (HX CVA, WEAKNESS TO LEFT ARM, MEMORY LOSS, NECK PAIN) Psychiatric: No Reproductive: No Respiratory: No Integumentary: No Thyroid Disease: No Past Surgical History Abdominal Surgery: No AICD: No Body Medical Devices: NONE Cardiac Surgery: Yes (CARDIAC CATH, CABG X 4 ) Ear Surgery: No Endocrine Surgery: No Eye Surgery: No Genitourinary Surgery: No Joint Replacement: No Oral Surgery: No Pacemaker: No Thoracic Surgery: No Social History Alcohol Use: No Tobacco Use: No Substance Use: No Allergies-Medications (Allergen,Severity, Reaction): Coded Allergies: No Known Allergies (Verified Allergy, Unknown, 04/02/17) Reported Meds & Prescriptions Reported Meds & Active Scripts Active Thera M Plus (Multivitamins/Minerals Therapeutic) 1 Tab 1 Tab PO DAILY Polyethylene Glycol 3350 Powder (Polyethylene Glycol) 17 Gram Pow 17 Gm PO DAILY Dok (Docusate Sodium) 100 Mg Cap 100 Mg PO BID Hydrocodone-Acetaminophen 5-325 mg Tab 1 Tab PO Q4H PRN Aspirin Low Strength (Aspirin) 81 Mg Chew 81 Mg PO DAILY Amiodarone (Amiodarone HCl) 200 Mg Tab 200 Mg PO Q12HR for 14 days only , no refill Reported Clopidogrel (Clopidogrel Bisulfate) 75 Mg Tab 75 Mg PO DAILY Ergocalciferol 50,000 Unit Cap 50,000 Units PO Q7D Lisinopril 10 Mg Tab 10 Mg PO DAILY Atorvastatin (Atorvastatin Calcium) 40 Mg Tab 40 Mg PO HS Carvedilol 6.25 Mg Tab 6.25 Mg PO BID Magnesium Oxide 400 Mg Tab 400 Mg PO DAILY Claritin (Loratadine) 10 Mg Cap 10 Mg PO DAILY PRN Fluticasone Nasal [place] 50 Mcg/Act Naspr 1 [place] EACH NARE BID PRN 50 mcg/spray Review of Systems Except as stated in HPI: all other systems reviewed are Neg Physical Exam Narrative GENERAL: Well-nourished, well-developed male patient, sitting up in bed, in no acute distress. SKIN: Focused skin assessment warm/moist.. Vertical midline sternal incision well approximated with Steri-Strips in place. No erythema or edema. No drainage. HEAD: Normocephalic. Atraumatic EYES: No scleral icterus. No injection or drainage. EOMI. PERRL ENT: Mucosa pink and moist. No erythema or exudates. No uvular edema. No uvular , palatal, or tonsillar deviation. Airway patent. Nasal turbinates appear normal without nasal blood, purulent drainage or septal hematoma. NECK: Supple, trachea midline. No JVD or lymphadenopathy. CARDIOVASCULAR: Regular rate and rhythm RESPIRATORY: Breath sounds clear throughout, equal bilaterally. No accessory muscle use. GASTROINTESTINAL: Abdomen soft, non-tender, nondistended. Nontender. No rebound tenderness or guarding. MUSCULOSKELETAL: No cyanosis, or edema. Decreased strength on the left upper and lower extremities. Mild contracture of the left hand and wrist. BACK: Nontender without obvious deformity. No CVA tenderness. Data Data Last Documented VS Vital Signs Date Time Temp Pulse Resp B/P (MAP) Pulse Ox O2 Delivery O2 Flow Rate FiO2 04/15/17 13:43 16 141/82 (101) 96 Room Air 04/15/17 12:53 82 04/15/17 11:03 98.4 Orders Orders Electrocardiogram (04/15/17 11:29) Basic Metabolic Panel (Bmp) (04/15/17 11:29) Complete Blood Count With Diff (04/15/17 11:29) Magnesium (Mg) (04/15/17 11:29) Ckmb (Isoenzyme) Profile (04/15/17 11:29) Troponin I (04/15/17 11:29) Act Partial Throm Time (Ptt) (04/15/17 11:29) Prothrombin Time / Inr (Pt) (04/15/17 11:29) Urinalysis - C+S If Indicated (04/15/17 11:29) Chest, Single Ap (04/15/17 11:29) Ecg Monitoring (04/15/17 11:29) Iv Access Insert/Monitor (04/15/17 11:29) Oximetry (04/15/17 11:29) Sodium Chloride 0.9% Flush (Ns Flush) (04/15/17 11:30) Sodium Chlorid 0.9% 500 Ml Inj (Ns 500 M (04/15/17 12:00) Orthostatic Vital Signs (04/15/17 12:41) Holter Monitor Recording (04/15/17 ) Ondansetron Inj (Zofran Inj) (04/15/17 13:00) Sodium Chlorid 0.9% 500 Ml Inj (Ns 500 M (04/15/17 13:00) Ed Discharge Order (04/15/17 13:50) (Hub Use Only)Inp Phy Cons/Ref (04/15/17 ) (Hub Use Only)Inp Phy Cons/Ref (04/15/17 ) Labs Laboratory Tests Test 04/15/17 11:35 White Blood Count 10.2 TH/MM3 Red Blood Count 3.99 MIL/MM3 Hemoglobin 12.0 GM/DL Hematocrit 36.1 % Mean Corpuscular Volume 90.5 FL Mean Corpuscular Hemoglobin 30.0 PG Mean Corpuscular Hemoglobin Concent 33.2 % Red Cell Distribution Width 14.5 % Platelet Count 489 TH/MM3 Mean Platelet Volume 7.1 FL Neutrophils (%) (Auto) 76.8 % Lymphocytes (%) (Auto) 11.7 % Monocytes (%) (Auto) 5.9 % Eosinophils (%) (Auto) 4.8 % Basophils (%) (Auto) 0.8 % Neutrophils # (Auto) 7.8 TH/MM3 Lymphocytes # (Auto) 1.2 TH/MM3 Monocytes # (Auto) 0.6 TH/MM3 Eosinophils # (Auto) 0.5 TH/MM3 Basophils # (Auto) 0.1 TH/MM3 CBC Comment DIFF FINAL Differential Comment Prothrombin Time 11.1 SEC Prothromb Time International Ratio 1.0 RATIO Activated Partial Thromboplast Time 20.5 SEC Urine Color YELLOW Urine Turbidity CLEAR Urine pH 6.0 Urine Specific [place] 1.023 Urine Protein TRACE mg/dL Urine Glucose (UA) NEG mg/dL Urine Ketones NEG mg/dL Urine Occult Blood NEG Urine Nitrite NEG Urine Bilirubin NEG Urine Urobilinogen LESS THAN 2.0 MG/DL Urine Leukocyte Esterase NEG Urine RBC 1 /hpf Urine WBC 1 /hpf Urine Hyaline Casts 1 /lpf Urine Mucus FEW /lpf Microscopic Urinalysis Comment CULT NOT INDICATED Blood Urea Nitrogen 15 MG/DL Creatinine 1.01 MG/DL Random Glucose 109 MG/DL Calcium Level 8.6 MG/DL Magnesium Level 2.4 MG/DL Sodium Level 137 MEQ/L Potassium Level 4.4 MEQ/L Chloride Level 104 MEQ/L Carbon Dioxide Level 27.6 MEQ/L Anion Gap 5 MEQ/L Estimat Glomerular Filtration Rate 75 ML/MIN Total Creatine Kinase 43 U/L Troponin I LESS THAN 0.02 NG/ML MDM Medical Decision Making Medical Screen Exam Complete: Yes Emergency Medical Condition: Yes Medical Record Reviewed: Yes Differential Diagnosis Syncope versus near-syncope versus vasovagal syncope versus electrolytes abnormality versus hypotension Narrative Course 62-year-old male presents to the the emergency department from rehabilitation for evaluation following a near syncopal episode. Patient appears without distress. His vital signs are stable. EKG is completed and reviewed by my attending is no acute abnormality. Laboratory Tests Test 04/15/17 11:35 White Blood Count 10.2 TH/MM3 Red Blood Count 3.99 MIL/MM3 Hemoglobin 12.0 GM/DL Hematocrit 36.1 % Mean Corpuscular Volume 90.5 FL Mean Corpuscular Hemoglobin 30.0 PG Mean Corpuscular Hemoglobin Concent 33.2 % Red Cell Distribution Width 14.5 % Platelet Count 489 TH/MM3 Mean Platelet Volume 7.1 FL Neutrophils (%) (Auto) 76.8 % Lymphocytes (%) (Auto) 11.7 % Monocytes (%) (Auto) 5.9 % Eosinophils (%) (Auto) 4.8 % Basophils (%) (Auto) 0.8 % Neutrophils # (Auto) 7.8 TH/MM3 Lymphocytes # (Auto) 1.2 TH/MM3 Monocytes # (Auto) 0.6 TH/MM3 Eosinophils # (Auto) 0.5 TH/MM3 Basophils # (Auto) 0.1 TH/MM3 CBC Comment DIFF FINAL Differential Comment Prothrombin Time 11.1 SEC Prothromb Time International Ratio 1.0 RATIO Activated Partial Thromboplast Time 20.5 SEC Urine Color YELLOW Urine Turbidity CLEAR Urine pH 6.0 Urine Specific [place] 1.023 Urine Protein TRACE mg/dL Urine Glucose (UA) NEG mg/dL Urine Ketones NEG mg/dL Urine Occult Blood NEG Urine Nitrite NEG Urine Bilirubin NEG Urine Urobilinogen LESS THAN 2.0 MG/DL Urine Leukocyte Esterase NEG Urine RBC 1 /hpf Urine WBC 1 /hpf Urine Hyaline Casts 1 /lpf Urine Mucus FEW /lpf Microscopic Urinalysis Comment CULT NOT INDICATED Blood Urea Nitrogen 15 MG/DL Creatinine 1.01 MG/DL Random Glucose 109 MG/DL Calcium Level 8.6 MG/DL Magnesium Level 2.4 MG/DL Sodium Level 137 MEQ/L Potassium Level 4.4 MEQ/L Chloride Level 104 MEQ/L Carbon Dioxide Level 27.6 MEQ/L Anion Gap 5 MEQ/L Estimat Glomerular Filtration Rate 75 ML/MIN Total Creatine Kinase 43 U/L Troponin I LESS THAN 0.02 NG/ML Lab work is been reviewed. Patient has no focal deficits weakness. Upon reassessment after a liter of normal saline fluid and Zofran, patient verbalizes feeling much better. I discussed the patient with Dr. wallace, the patient's metal plater who feels comfortable with the patient being discharged back to rehabilitation area he does request Holter monitor be placed. I have confirmed with winsome Campbell signature that they would return the Holter monitor tomorrow. Diagnosis Primary Impression: Near syncope Referrals: Lee Wallace MD Primary Care Physician Patient Instructions: General Instructions, Near Syncope (ED) Additional Instructions: Maintain adequate oral hydration Follow-up with primary care provider Continue medications as already prescribed Follow-up with your metal plater Holter monitor is to be worn for 24 hours and then returned to the old second- floor EKG department Return immediately with any acute worsening of symptoms Med/Other Pt SpecificInfo: No Change to Meds Disposition: 01 DISCHARGE HOME Condition: Stable Pham Ferraro Apr 15, 2017 11:28
[2017-04-15] MEDS ORDERED: SODIUM CHLORIDE 0.9% FLUSH 10 ML FLUSH IVF PRN (11:30)
[2017-04-15] MEDS ORDERED: SODIUM CHLORID 0.9% 500 ML INJ 500 ML IV ONE ×2 (12:00→13:00)
[2017-04-15 12:14] LABS: AUTOMATED NEUTROPHIL # 7.8 TH/MM3 (1.8-7.7); BASOPHIL # 0.1 TH/MM3 (0-0.2); BASOPHIL % 0.8 % (0.0-2.0); EOSINOPHIL # 0.5 TH/MM3 (0-0.4); EOSINOPHIL % 4.8 % (0.0-4.0); HEMATOCRIT 36.1 % (39.0-51.0); HEMO FLAGS DIFF FINAL; LYMPH % 11.7 % (9.0-44.0); LYMPHOCYTE # 1.2 TH/MM3 (1.0-4.8); MEAN CELL VOLUME 90.5 FL (80.0-100.0); MEAN CORPUSCULAR HGB CONC 33.2 % (32.0-36.0); MONO % 5.9 % (0.0-8.0); NEUT % 76.8 % (16.0-70.0); PLATELET COUNT 489 TH/MM3 (150-450); RED BLOOD COUNT 3.99 MIL/MM3 (4.50-5.90); RED CELL DISTRIBUTION WIDTH 14.5 % (11.6-17.2); WHITE BLOOD COUNT 10.2 TH/MM3 (4.0-11.0)
[2017-04-15 12:15] LABS: BLOOD, URINE NEG (NEG); GLUCOSE,URINE NEG (NEG); HYALINE CAST, URINE 1 /lpf (RARE); KETONE, URINE NEG (NEG); MUCUS URINE FEW /lpf (OCC); NITRITE,URINE NEG (NEG); URINE COLOR YELLOW (YELLW/STRAW)
[2017-04-15 12:16] LABS: COMMENT (UR) CULT NOT INDICATED; CULTURE IF INDICATED CULT NOT INDICATED
[2017-04-15 12:28] LABS: ANION GAP 5 MEQ/L (5-15); BICARBONATE 27.6 MEQ/L (21.0-32.0); BLOOD UREA NITROGEN 15 MG/DL (7-18); CHLORIDE 104 MEQ/L (98-107); GLOMERULAR FILTRATION RATE 75 ML/MIN (>89); MAGNESIUM 2.4 MG/DL (1.5-2.5); POTASSIUM 4.4 MEQ/L (3.5-5.1); SODIUM (NA) 137 MEQ/L (136-145)
[2017-04-15 12:32] LABS: APTT (PATIENT) 20.5 SEC (24.3-30.1); PROTHROMBIN TIME - PATIENT 11.1 SEC (9.8-11.6)
[2017-04-15 12:33] LABS: CREATINE KINASE 43 U/L (39-308)
[2017-04-15 12:50] VITALS: BP 129/82; RESP 18
--- NOTE | 2017-04-15 12:51 | RADRPT ---
EXAM DATE/TIME: 04/15/2017 11:42 [facility] COMPARISON: CHEST SINGLE AP, April 03, 2017, 4:41. INDICATIONS : Syncope. MEDICAL HISTORY : Stroke. SURGICAL HISTORY : CABG. ENCOUNTER: Initial ACUITY: 1 day PAIN SCORE: 0/10 LOCATION: Bilateral chest FINDINGS: The left-sided chest tube and mediastinal drain have been removed. There is no pneumothorax. Atelec tasis is noted within the left mid lung field. Median sternotomy wires are noted status post cardiac surgery. A right internal jugular central line has been removed also. The heart is stable. No acu te infiltrate is noted. CONCLUSION: 1. Status post removal of tubes and lines. 2. No evidence of pneumothorax. 3. Discoid atelectasis within the left mid lung field. Kurt Fang MD on April 15, 2017 at 12:11 Board Certified Radiologist. This report was verified electronically.
[2017-04-15 12:52] VITALS: BP 118/65; RESP 18
[2017-04-15 12:53] VITALS: BP 132/70; RESP 18
[2017-04-15] MEDS ORDERED: ONDANSETRON HCL 4 MG/2 ML VIAL IV PUSH ONE (13:00)
[2017-04-15 13:43] VITALS: BP 141/82; RESP 16; O2SAT 96
--- NOTE | 2017-04-15 13:56 | EKG ---
Date Performed: 04/15/2017 Time Performed: 11:49:51 PTAGE: 62 years EKG: Sinus rhythm WITH FIRST DEGREE AV BLOCK INFERIOR MYOCARDIAL INFARCTION ABNORMAL ECG PREVIOUS TRACING : 04/06/2017 15.11 DOCTOR: Lee Cadena Interpretating Date/Time 04/15/2017 13:53:37
--- NOTE | 2017-04-19 13:47 | HM ---
Date Performed: 04/15/2017 Time Performed: 15:21:00 HOOKUP DATE: 04/15/17 03:21:00 PM Wed ANALYSIS START TIME: 04/15/2017 3:26:00 PM ANALYSIS END TIME: 04/16/2017 3:30:00 PM PATIENT AGE: 62 PATIENT HEIGHT PATIENT WEIGHT DRUG LIST PATIENT DIAGNOSIS: SYNCOPE/EVAC TEST NARRATIVE: The patient's average heart rate was 83 BPM. No episodes of tachycardia wer e noted. No episodes of bradycardia were noted. No pauses exceeding 2.0 seconds were noted. 81 ventricular ectopics, which represented < 1% of the total beat count, were noted. The highest abhishek tricular ectopic frequency occurred from 10:00 AM to 11:00 AM Daniella. During this time 23 VE(s) occurre d. Ventricular ectopics were observed as 81 isolated beat(s) only. No couplets or runs were noted. No supraventricular ectopics were noted. No episodes of ST depression (defined as -1.0 mm or more) were noted in channel 1. No episodes of ST depression (defined as -1.0 mm or more) were noted in channel 2. No episodes of ST depression (defined as -1.0 mm or more) were noted in channel 3. TEST INTERPRETATION: PVCS, NO SIGNIFICANT ARRHYTHMIAS Signed by : Radha Nix
== END 2017-04-15 18:18 | disposition home or self-care (01) ==
LOC: NEPC 10:47
DX: R55 Syncope and collapse (principal); R11.0 Nausea; I49.3 Ventricular premature depolarization; R94.31 Abnormal electrocardiogram [ECG] [EKG]; I10 Essential (primary) hypertension; Z95.1 Presence of aortocoronary bypass graft; Z86.79 Personal history of other diseases of the circulatory system; Z87.19 Personal history of other diseases of the digestive system; Z87.448 Personal history of other diseases of urinary system; Z87.39 Personal history of other diseases of the musculoskeletal system and connective tissue; Z86.69 Personal history of other diseases of the nervous system and sense organs
CPT/HCPCS: 71010; 80048; 81001; 82550; 83735; 84484; 85025; 85610; 85730; 93005; 93225; 93226; 96374; 99285; J2405; J7040